=== PATIENT | female | born 1960 | race Caucasian/White ===

== ENCOUNTER 2017-01-19 09:22 | Outpatient (CLI) | payer OTHER ==
[~2017-01-19] VITALS: Ht 162.6 cm; Wt 104.3 kg
[~2017-01-19 09:22] MED LIST: CYAN10006 PO; DEXT10TA9 PO; DILT120C47 PO; DILT120C54 PO; HYDR-3812 PO; OMEP20TA7 PO; [UNRECOGNIZED DRUG - OTHER] PO
[2017-01-19] MEDS ORDERED: NAPR220C11 PO (09:36)
[2017-01-19] MEDS ORDERED: CETI5TAB6 PO (09:36)
[2017-01-19 09:40] VITALS: BP 124/69
[2017-01-20] MEDS ORDERED: HYDR-3816 PO (12:02)
== END 2017-01-19 10:27 | disposition home or self-care (01) ==
LOC: PREOP 09:22
PROVIDERS: ATTEND Orthopaedic Surgery
DX: Z01.818 Encounter for other preprocedural examination (principal); Z11.2 Encounter for screening for other bacterial diseases; M94.261 Chondromalacia, right knee
CPT/HCPCS: 87081

== ENCOUNTER 2017-01-20 08:17 | Day surgery (SDC) | payer OTHER ==
[~2017-01-20] VITALS: Ht 162.6 cm; Wt 104.3 kg
--- NOTE | 2017-01-20 07:25 | HISTORY AND PHYSICAL ---
DATE OF ADMISSION: 01/20/2017 This will be for outpatient surgery for right knee arthroscopy. HISTORY: The patient is a 56-year-old female with right knee pain, anteriorly. She reports swelling in her knee. She reports catching and locking since July. She reports difficulty with stairs because of her knees. She reports activity limitations. She has failed to respond to conservative measures, including anti-inflammatories, and intra-articular injection and due to functional impairment, the patient has elected to proceed with surgical intervention. REVIEW OF SYSTEMS: No chest pain, no shortness of breath. No dysuria. PAST MEDICAL HISTORY: 1. Tachycardia. 2. Fatigue. 3. Palpitations. PAST SURGICAL HISTORY: 1. Left knee arthroscopy. 2. Hysterectomy. 3. Cholecystectomy. 4. Gynecologic. FAMILY HISTORY: Significant for: 1. Hypertension. 2. COPD. 3. Dementia. 4. Hyperlipidemia. 5. Coronary artery disease. PRIMARY CARE PROVIDER: Dr. Ratliff. MEDICATIONS: 1. Diltiazem 2. Aleve 3. Cetirizine ALLERGIES: 1. Prednisone 2. Adderall SOCIAL HISTORY: The patient is a former smoker. She denies alcohol use. Radiographs reveal mild medial and patellofemoral joint space narrowing. PHYSICAL EXAMINATION: The patient is well-developed, well-nourished, in no acute distress. HEENT: Normocephalic, atraumatic. Pupils are equal, round, and reactive to light, oropharynx is clear. NECK: Supple. No lymphadenopathy. LUNGS: Clear to auscultation bilaterally. HEART: Regular rate and rhythm. ABDOMEN: Soft, nontender, nondistended. EXTREMITY EXAM: The right knee demonstrates a moderate effusion. She has patellofemoral crepitus, pain with patellar loading. She is also tender along her medial joint line but has no pain medially with Vale's. Range of motion 0/0/125. The patient ambulates with an antalgic gait. 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 PLAN: Right knee arthroscopy with chondroplasty and partial meniscectomy. The risks, benefits, options, ramifications and recovery were discussed at length with the patient. She understands wishes to proceed. Job ID: [id number] Dictated Date: 01/18/2017 15:54:42 Nursing Attendant Date: 01/19/2017 08:22:00/bipin
[~2017-01-20 08:17] MED LIST changes: +CETI5TAB6 PO; +NAPR220C11 PO
[2017-01-20] MEDS ORDERED: NS (IVPB) 50 ML ONE (08:24)
[2017-01-20] MEDS ORDERED: ceFAZolin 1,000 MG (ANCEF) VIAL ONE (08:24)
[2017-01-20 08:33] VITALS: BP 136/74
[2017-01-20] MEDS ORDERED: ceFAZolin 1 GM/NS 50 ML IVPB IV ONE ×2 (08:45)
[2017-01-20] MEDS ORDERED: CATHETER FLUSH 10 ML SYR IV PRN (08:45)
--- NOTE | 2017-01-20 08:54 | Progress Note-Pre Operative ---
Pre-Operative Progress Note H&P Reviewed The H&P was reviewed, patient examined and no changes noted. Date H&P Reviewed: Jan 20, 2017 Time H&P Reviewed: 08:53 Pre-Operative Diagnosis: right knee chondromalacia of the patella and medial meniscal tear ROQUE MONTELONGO MD Jan 20, 2017 08:54
--- NOTE | 2017-01-20 08:55 | Progress Note-Post Operative ---
Post-Operative Progess Note Rcis Buzz Giron Pre-Operative Diagnosis right knee chondromalacia of the patella and medial meniscal tear Post-Operative Diagnosis right knee chondromalacia of the patella, trochlea, medial tibial plateau, and medial femoral condyle and medial meniscal tear Post-Op Procedure Note Date of Procedure: Jan 20, 2017 Name of Procedure: right knee arthroscopic chondroplasty of the patella, trochlea, medial femoral condyle and medial tibial plateau and partial medial meniscectomy Anesthesia Type GETA Estimated blood loss (mL): minimal Packing: none Specimen(s) collected none ROQUE MONTELONGO MD Jan 20, 2017 08:55
[2017-01-20] MEDS ORDERED: ONDANSETRON 4 MG/2 ML (SDV) Z0FRAN IV ONE (09:15)
[2017-01-20] MEDS ORDERED: FAMOTIDINE 20MG/2ML IV (PEPCID) IV ONE (09:15)
[2017-01-20] MEDS ORDERED: SCOPOLAMINE 1.5 MG (TRANSDERM-SCOP) PATCH TOP ONE (09:15)
[2017-01-20] MEDS ORDERED: FAMOTIDINE 20MG/2ML IV (PEPCID) ONE (09:19)
[2017-01-20] MEDS ORDERED: ONDANSETRON 4 MG/2 ML (SDV) Z0FRAN ONE ×2 (09:19→09:29)
[2017-01-20] MEDS ORDERED: SCOPOLAMINE 1.5 MG (TRANSDERM-SCOP) PATCH ONE (09:19)
[2017-01-20] MEDS: LACTATED RINGERS 1,000 ML IV PRN ×2 (09:22→10:45)
[2017-01-20] MEDS ORDERED: LIDOCAINE PF 2% 10 ML (XYLOCAINE) AMP ONE (09:29)
[2017-01-20] MEDS ORDERED: DEXAMETHASONE PF 10 MG/ML (DECADRON) VIAL ONE (09:29)
[2017-01-20] MEDS ORDERED: LACTATED RINGERS 1,000 ML IV ONE ×2 (09:29→10:42)
[2017-01-20] MEDS ORDERED: SEVOFLURANE (ULTANE) 15 ML INHAL SOLN ONE (09:29)
[2017-01-20] MEDS ORDERED: fentaNYL INJECTION 100 MCG/2 ML AMP ONE (09:29)
[2017-01-20] MEDS ORDERED: proPOfol 200 MG/20 ML (DIPRIVAN) VIAL IV ONE (09:29)
[2017-01-20] MEDS ORDERED: MIDAZOLAM 2 MG/2 ML (VERSED) VIAL ONE (09:29)
[2017-01-20] MEDS ORDERED: HYDROcodone/APAP 7.5 MG/325 MG (LORTAB, LORCET PLUS) TABLET PO PRN (09:30)
[2017-01-20] MEDS ORDERED: BUPIVACAINE 0.25% 30 ML (SENSORCAINE) VIAL ONE (09:37)
[2017-01-20] MEDS ORDERED: morphine PF (DURAMORPH) 10 MG/10 ML AMP ONE (09:37)
[2017-01-20] MEDS ORDERED: ONDANSETRON 4 MG/2 ML (SDV) Z0FRAN IVP PRN (11:00)
[2017-01-20] MEDS ORDERED: MEPERIDINE (DEMEROL) INJ 50 MG/ML IVP PRN (11:00)
[2017-01-20] MEDS: morphine INJ 10 MG/ML 1ML (SYR OR VIAL) IVP PRN ×2 (11:00→11:14)
[2017-01-20 11:50] VITALS: BP 117/79
[2017-01-20] MEDS ORDERED: HYDR-3816 PO (12:02)
[2017-01-20 12:20] VITALS: BP 116/79
[2017-01-20 12:50] VITALS: BP 114/75
[2017-01-20 13:15] VITALS: BP 114/75
--- NOTE | 2017-01-20 15:58 | Physical Therapy Progress Note ---
Therapy Progress Note Orders received for PT eval with gait training and exercise post knee scope. Pt declined gait training as she reported she felt comfortable using her crutches as she used them in a previous surgery. However, she felt she needed a refresher on the exercises. Reviewed and instructed in HEP of QS, HS and SLR. Pt demonstrated correct performance and had no questions post treatment. Visit only. no charge rendered. LYNN SHEPARD PT Jan 20, 2017 15:58
--- NOTE | 2017-01-21 11:16 | OPERATIVE REPORT ---
PROCEDURE PHYSICIAN: ROQUE MONTELONGO DATE OF PROCEDURE: 01/20/2017 PREOPERATIVE DIAGNOSIS: 1. Right knee medial meniscal tear. 2. Right knee chondromalacia of the patella. 3. Right knee chondromalacia of the trochlea. POSTOPERATIVE DIAGNOSIS: 1. Right knee medial meniscal tear. 2. Right knee chondromalacia of the patella. 3. Right knee chondromalacia of the trochlea. 4. Right knee chondromalacia of the medial femoral condyle. 5. Right knee chondromalacia of the medial tibial plateau. PROCEDURE: 1. Right knee arthroscopic partial medial meniscectomy. 2. Right knee arthroscopic chondroplasty of the patella. 3. Right knee arthroscopic chondroplasty of the trochlea. 4. Right knee arthroscopic chondroplasty of the medial femoral condyle. 5. Right knee arthroscopic chondroplasty of the medial tibial plateau. SURGEON: Dennis EXPANDER MACHINE OPERATOR: Buzz Giron who assisted throughout the procedure and closed the incisions. ANESTHESIA: General endotracheal by Dr. Hurd. TOURNIQUET TIME: Was not applicable. ESTIMATED BLOOD LOSS: Minimal. DRAINS: None. COMPLICATIONS: None. POSTOPERATIVE PLAN: Routine arthroscopy protocol. The patient was transported to the recovery room, awake, in stable condition. STATEMENT OF MEDICAL NECESSITY: The patient is a 56-year-old female with right anterior and medial knee pain, swelling, popping and snapping. She has undergone treatment with injections without relief. She reported continued functional impairment. She had a large effusion. She had pain with patellar loading tenderness along her medial femoral condyle and due to functional impairment and failure to improve with conservative measures, the patient elected to proceed with surgical intervention. Examination under anesthesia revealed range of motion 0/0/130. Negative Juliane. Negative anterior and posterior drawer. No varus valgus laxity. Negative pivot shift. Arthroscopic findings: The patella demonstrated grade 2 chondral flaps over the lateral facet in a 10 x 15 area. The trochlea demonstrated grade 4 chondral loss centrally in a 10 x 15 area with surrounding grade 3 chondral flaps at the periphery. The lateral compartment demonstrated no meniscal or chondral pathology. The ACL and PCL were intact. The medial compartment demonstrated a horizontal cleavage tear of the posterior horn of the meniscus involving approximately 30% of the posterior horn. In addition, there were grade 3 chondral flap centrally over the tibial plateau in a 10 x 8 area and over the central portion of femoral condyle in a 15 x 10 area. PROCEDURE: After risks and benefits of procedure were discussed and questions were answered, informed consent signed and placed on chart. The operative site was confirmed in the preoperative holding area and initialed by the surgeon. The patient was then transported to the operating room and after adequate levels of general endotracheal anesthetic were obtained, a timeout was called confirming the operative site. Examination under anesthesia was performed with the above findings noted. The right lower extremity was then prepped and draped usual sterile fashion. The knee joint was injected with 60 mL of fluid and a standard inferolateral port was placed for the arthroscope and inflow cannula. A diagnostic arthroscopy was carried out after creating an inferior medial portal under direct visualization. The unstable chondral flaps on the patella and trochlea were debrided with a shaver back to a stable edge. The scope was then redirected into the medial compartment and the unstable chondral flaps of the medial femoral condyle and medial tibial plateau were debrided with a shaver, back to a stable edge. The posterior horn of the medial meniscus was debrided with a biter and with a shaver, removing approximately 1/3rd of the posterior horn. This was carefully probed with no further tearing or instability noted. The knee was copiously irrigated. Port sites closed with 3-0 nylon in simple interrupted fashion. The knee was injected with Duramorph. Portal sites were infiltrated with plain Marcaine. A soft dressing was applied. The patient was transported to the recovery room, awake, in stable condition. Job ID: [id number] Dictated Date: 01/20/2017 10:50:14 Assembler Garment Form Date: 01/21/2017 11:04:17 / licha
== END 2017-01-20 13:15 | disposition home or self-care (01) ==
LOC: SDC 08:17
PROVIDERS: ATTEND Orthopaedic Surgery
DX: M23.8X1 Other internal derangements of right knee (principal); M22.41 Chondromalacia patellae, right knee; I10 Essential (primary) hypertension; J44.9 Chronic obstructive pulmonary disease, unspecified; F03.90 Unspecified dementia, unspecified severity, without behavioral disturbance, psychotic disturbance, mood disturbance, and anxiety; E78.5 Hyperlipidemia, unspecified; I25.10 Atherosclerotic heart disease of native coronary artery without angina pectoris; Z79.899 Other long term (current) drug therapy; Z87.891 Personal history of nicotine dependence

== ENCOUNTER → 2017-06-14 | Outpatient (CLI) | payer BC, OTHER ==
[~2017-06-14] MED LIST changes: +HYDR-3816 PO
--- NOTE | 2017-06-15 17:44 | Diagnostic Imaging Report ---
Bilateral screening mammogram 2D views with tomosynthesis. The current study was also evaluated with a Computer Aided Detection (CAD) system. INDICATION: Screening. No current complaints stated on the questionnaire. COMPARISON: 03/16/16 FINDINGS: The breasts are composed of scattered fibroglandular densities. There are occasional benign-appearing calcifications. Allowing for technique and positional differences, no suspicious change is seen. IMPRESSION: No significant change. ACR BI-RADS Category 2: Benign findings. Result letter will be mailed to the patient. Note: At least 10% of breast cancer is not imaged by mammography. Dictated by: Dictated on workstation # [id number]
== END ==
LOC: RAD 15:20
PROVIDERS: ATTEND Internal Medicine
DX: Z12.31 Encounter for screening mammogram for malignant neoplasm of breast (principal)
CPT/HCPCS: 77067

== ENCOUNTER → 2017-07-23 | Outpatient (CLI) | payer BC ==
[2017-07-23 11:32] LABS: BASOPHILS % (AUTO) 1 % (0-10); EOSINOPHILS # (AUTO) 0.2 10^3/uL (0.0-0.3); EOSINOPHILS % (AUTO) 2 % (0-10); LYMPHOCYTES # (AUTO) 2.3 X 10^3 (1.0-4.0); LYMPHOCYTES % (AUTO) 36 % (12-44); MEAN CORPUSCULAR HEMOGLOBIN 30 PG (25-34); MEAN CORPUSCULAR HGB CONC 33 G/DL (32-36); MEAN CORPUSCULAR VOLUME 91 FL (80-99); MEAN PLATELET VOLUME 10.2 FL (7.4-10.4); MONOCYTES # (AUTO) 0.5 X 10^3 (0.0-1.0); MONOCYTES % (AUTO) 8 % (0-12); NEUTROPHILS # (AUTO) 3.3 X 10^3 (1.8-7.8); NEUTROPHILS % (AUTO) 53 % (42-75); PLATELET COUNT 272 10^3/uL (130-400); RED BLOOD COUNT 4.44 10^6/uL (4.35-5.85); RED CELL DISTRIBUTION WIDTH 13.7 % (10.0-14.5); WHITE BLOOD COUNT 6.3 10^3/uL (4.3-11.0)
[2017-07-23 11:57] LABS: ALANINE AMINOTRANSFERASE 19 U/L (0-55); ALBUMIN 4.3 GM/DL (3.2-4.5); ANION GAP 9 MMOL/L (5-14); ASPARTATE AMINO TRANSFERASE 21 U/L (5-34); BILIRUBIN,TOTAL 0.7 MG/DL (0.1-1.0); BLOOD UREA NITROGEN 20 MG/DL (7-18); BUN/CREATININE RATIO 22; CALCIUM 9.1 MG/DL (8.5-10.1); CARBON DIOXIDE 27 MMOL/L (21-32); CHLORIDE 106 MMOL/L (98-107); CHOLESTEROL 218 MG/DL (< 200); CREATININE SERUM 0.93 MG/DL (0.60-1.30); DIRECT LDL 158 MG/DL (1-129); GFR ESTIMATED > 60; GLUCOSE 97 MG/DL (70-105); SODIUM 142 MMOL/L (135-145); TOTAL PROTEIN 6.9 GM/DL (6.4-8.2); TRIGLYCERIDES 68 MG/DL (<150); VLDL CHOLESTEROL 14 MG/DL (5-40)
[2017-07-23 12:17] LABS: THYROID STIMULATING HORMONE 0.93 UIU/ML (0.35-4.94)
== END ==
LOC: LAB 10:39
PROVIDERS: ATTEND Internal Medicine
DX: E53.8 Deficiency of other specified B group vitamins (principal); E78.00 Pure hypercholesterolemia, unspecified; E78.1 Pure hyperglyceridemia
CPT/HCPCS: 36415; 80053; 80061; 82607; 82746; 84443; 85025

== ENCOUNTER 2017-11-17 10:00 | Outpatient (RCR) | payer BC ==
[2017-11-11 13:06] VITALS: BP 134/74
[~2017-11-17] VITALS: Ht 162.6 cm; Wt 106.6 kg
[~2017-11-17 10:00] MED LIST changes: +ACHD5005 PO; +HYDR-34 PO; -HYDR-3812 PO; -HYDR-3816 PO
[2017-11-17 10:17] LABS: BASOPHILS % (AUTO) 0 % (0-10); EOSINOPHILS # (AUTO) 0.1 10^3/uL (0.0-0.3); EOSINOPHILS % (AUTO) 2 % (0-10); HEMATOCRIT 40 % (35-52); HEMOGLOBIN 13.3 G/DL (11.5-16.0); LYMPHOCYTES # (AUTO) 1.6 X 10^3 (1.0-4.0); LYMPHOCYTES % (AUTO) 30 % (12-44); MEAN CORPUSCULAR HEMOGLOBIN 30 PG (25-34); MEAN CORPUSCULAR HGB CONC 33 G/DL (32-36); MEAN CORPUSCULAR VOLUME 91 FL (80-99); MEAN PLATELET VOLUME 10.3 FL (7.4-10.4); MONOCYTES # (AUTO) 0.5 X 10^3 (0.0-1.0); MONOCYTES % (AUTO) 9 % (0-12); NEUTROPHILS # (AUTO) 3.1 X 10^3 (1.8-7.8); NEUTROPHILS % (AUTO) 59 % (42-75); PLATELET COUNT 256 10^3/uL (130-400); RED BLOOD COUNT 4.45 10^6/uL (4.35-5.85); RED CELL DISTRIBUTION WIDTH 13.9 % (10.0-14.5); WHITE BLOOD COUNT 5.4 10^3/uL (4.3-11.0)
[2017-11-18] MEDS ORDERED: Hydrocodone Bit/Acetaminophen PO (09:09)
[2017-11-18] MEDS ORDERED: DOCU100C37 PO (09:09)
[2017-11-18] MEDS ORDERED: IBUP-1773 PO (09:09)
[2017-11-19] MEDS ORDERED: CIPR-225 PO (11:04)
== END 2018-02-09 | disposition home or self-care (01) ==
LOC: PREOP 10:00
PROVIDERS: ATTEND Obstetrics & Gynecology
DX: Z01.818 Encounter for other preprocedural examination (principal); N81.10 Cystocele, unspecified; N39.3 Stress incontinence (female) (male)
CPT/HCPCS: 36415; 85025; 86850; 86900; 86901; 87081

== ENCOUNTER 2017-11-18 08:17 | Day surgery (SDC) | payer BC ==
[~2017-11-18] VITALS: Ht 162.6 cm; Wt 106.6 kg
[~2017-11-18 08:17] MED LIST changes: -ACHD5005 PO; -HYDR-34 PO; +HYDR-3812 PO; +HYDR-3816 PO
[2017-11-18] MEDS: LACTATED RINGERS 1,000 ML IV PRN ×4 (08:49→11:16)
[2017-11-18 08:54] VITALS: BP 132/65
[2017-11-18] MEDS ORDERED: ceFAZolin 1 GM/NS 50 ML IVPB IV ONE ×2 (09:00)
[2017-11-18] MEDS: ceFAZolin INJECTION 1,000 MG in NS (IVPB) 50 ML IV ONE ×2 (09:02→09:32)
--- NOTE | 2017-11-18 09:02 | Progress Note-Pre Operative ---
Pre-Operative Progress Note H&P Reviewed The H&P was reviewed, patient examined and no changes noted. Date Seen by Provider: Nov 18, 2017 Time Seen by Provider: 09:00 Date H&P Reviewed: Nov 18, 2017 Time H&P Reviewed: 09:00 Pre-Operative Diagnosis: BRENDA, Cystocele ROQUE ALEXANDRA DO Nov 18, 2017 9:02 am
[2017-11-18] MEDS ORDERED: DOCU100C37 PO (09:09)
[2017-11-18] MEDS ORDERED: IBUP-1773 PO (09:09)
[2017-11-18] MEDS ORDERED: Hydrocodone Bit/Acetaminophen PO (09:09)
--- NOTE | 2017-11-18 09:11 | Discharge Inst-Women's Service ---
Discharge Inst-Women's Serv Depart Medication/Instructions New, Converted or Re-Newed RX: RX on Chart Consults/Follow Up Additional Follow Up: Yes Orders/Referrals 2-3 weeks Activity Activity: Activity as Tolerated NO SMOKING: NO SMOKING Nothing Inside Vagina: No Douching, No Hiller, No Tampons Other Activity Use premarin cream 3x a week at night to promote healing Diet Discharge Diet: No Restrictions Symptoms to Report to : Bleeding Excessive, Pain Increased, Constipation( Persistant), Fever Over 101 Degrees F, Urination Difficulty, Vaginal Bleeding Increase, Questions/Concerns For Any Problems or Questions: Contact Your Physician Skin/Wound Care Bathing Instructions: Shower (x 2 weeks.) ROQUE ALEXANDRA DO Nov 18, 2017 9:11 am
[2017-11-18] MEDS ORDERED: morphine INJ 10 MG/ML 1ML (SYR OR VIAL) IV PRN (09:15)
[2017-11-18] MEDS ORDERED: METOCLOPRAMIDE INJ 10 MG/2 ML (REGLAN) IV PRN (09:15)
[2017-11-18] MEDS ORDERED: HYDROcodone/APAP 5 MG/325 MG (LORTAB) TAB PO PRN (09:15)
[2017-11-18] MEDS ORDERED: LACTATED RINGERS 1,000 ML IV PRN (09:21)
[2017-11-18] MEDS ORDERED: fentaNYL INJECTION 100 MCG/2 ML AMP ONE ×2 (09:27→10:00)
[2017-11-18] MEDS ORDERED: ROCURONIUM 50 MG/5 ML (ZEMURON) VIAL IV ONE (09:27)
[2017-11-18] MEDS ORDERED: MIDAZOLAM 2 MG/2 ML (VERSED) VIAL ONE (09:27)
[2017-11-18] MEDS ORDERED: LIDOCAINE JELLY 2% (XYLOCAINE) 5 ML TUBE ONE (09:27)
[2017-11-18] MEDS ORDERED: LIDOCAINE PF 2% 5 ML (XYLOCAINE) VIAL ONE (09:27)
[2017-11-18] MEDS ORDERED: proPOfol 200 MG/20 ML (DIPRIVAN) VIAL IV ONE (09:27)
[2017-11-18] MEDS ORDERED: ONDANSETRON 4 MG/2 ML (SDV) Z0FRAN ONE (09:27)
[2017-11-18] MEDS ORDERED: SCOPOLAMINE 1.5 MG (TRANSDERM-SCOP) PATCH TOP ONE (09:30)
[2017-11-18] MEDS ORDERED: FAMOTIDINE 20MG/2ML IV (PEPCID) IV ONE (09:30)
[2017-11-18] MEDS ORDERED: ONDANSETRON 4 MG/2 ML (SDV) Z0FRAN IV ONE (09:30)
[2017-11-18] MEDS ORDERED: NS (IVPB) 100 ML ONE (09:49)
[2017-11-18] MEDS ORDERED: VASOPRESSIN INJECTION 20 UNIT/ML VIAL ONE (09:50)
--- NOTE | 2017-11-18 10:06 | Progress Note-Pre Operative ---
Pre-Operative Progress Note H&P Reviewed The H&P was reviewed, patient examined and no changes noted. Date Seen by Provider: Nov 18, 2017 Time Seen by Provider: 10:06 Date H&P Reviewed: Nov 18, 2017 Time H&P Reviewed: : Pre-Operative Diagnosis: INCONTINENCE, OAB, ISD ART MEDINA MD Nov 18, 2017 10:06 am
--- NOTE | 2017-11-18 10:07 | Progress Note-Post Operative ---
Post-Operative Progess Note Surgeon (s)/Slipman (s) Surgeon ART MEDINA MD Slipman: N/A Pre-Operative Diagnosis INCONTINENCE, OAB, ISD Post-Operative Diagnosis SAME Procedure & Operative Findings Date of Procedure 11/18/17 Procedure Performed/Findings PVS AND CYSTOSCOPY Anesthesia Type GENERAL Estimated Blood Loss Estimated blood loss (mL): NEGLIGIBLE Specimens/Packing Specimens Removed N/A Packing: VAGINAL PACK ART MEDINA MD Nov 18, 2017 10:07 am
[2017-11-18] MEDS ORDERED: ESTROGENS CONJ. CREAM 30 GM (PREMARIN) TUBE ONE (10:12)
[2017-11-18] MEDS ORDERED: SEVOFLURANE (ULTANE) 15 ML INHAL SOLN ONE ×3 (10:47→10:48)
--- OUTSIDE RECORDS SUMMARY | 2017-11-18 10:48 | XMS REPORT | Clinical Summary ---
Author Author User, JARVIS Gresham [facility] Address Unknown Phone Allergies, Adverse Reactions, Alerts Allergy Name Reaction Description Start Date Severity Status Provider PREDNISONE palpatations Critical Active Nanette Ratliff Conditions or Problems Problem Name Problem Code Onset Date Status Entry Date Provider Comment Standard Description Annotate OTITIS MEDIA 382.9 Resolved Nanette Ratliff Unspecified otitis media SMOKER 305.1 Active Nanette Ratliff Tobacco use disorder HERPES LABIALIS 054.9 Active Nanette Ratliff Herpes simplex without mention of complication HEEL PAIN, RIGHT 729.5 Resolved Nanette Ratliff Pain in limb ABNORMAL MAMMOGRAM 793.80 Resolved Nanette Ratliff Abnormal mammogram, unspecified KNEE PAIN 719.46 Resolved Nanette Ratliff Pain in joint involving lower leg MENOPAUSAL SYNDROME 627.0 Resolved Nanette Ratliff Premenopausal menorrhagia BREAST MASS, LEFT 611.72 Resolved Nanette Ratliff Lump or mass in breast HEALTH SCREENING V70.0 Resolved Nanette Ratliff Routine general medical examination at a health care facility FATIGUE, CHRONIC 780.79 Resolved Nanette Ratliff Other malaise and fatigue RAYNAUD'S SYNDROME 443.0 Active Nanette Ratliff Raynaud's syndrome POLYARTHRALGIA 719.49 Active Nanette Ratliff Pain in joint involving multiple sites WELL WOMAN V70.0 Inactive Nanette Ratliff Routine general medical examination at a health care facility Medication List Medication Instructions Start Date Stop Date Generic Name NDC Status Provider Patient Instruction VALTREX 1 GM TAB 1 PO BID for 3 days prn cold sore VALACYCLOVIR HCL 86781718594 Active Arianna Beal CARTIA XT 120 MG [id number] 1 PO daily DILTIAZEM HCL COATED BEADS 05487780309 Active Sylvester Valenzuela VALTREX 1 GM TABS 1 PO BID as needed for cold sore VALACYCLOVIR HCL 78797990297 No Longer Active Nanetteshruthi Ratliff PYRIDIUM 200 MG TAB 1 PO TID prn urinary urgency PHENAZOPYRIDINE HCL 58824654469 No Longer Active Nanette Ratliff CIPRO 500 MG TAB 1 PO BID for 3 days CIPROFLOXACIN HCL 69415457582 No Longer Active Nanetteshruthi Ratliff ADDERALL 10 MG TABS 1 PO BID AMPHETAMINE- DEXTROAMPHETAMINE 54921836121 No Longer Active Nanette Ratliff LORTAB 5 5-500 MG TABS 1 to 2 PO Q6hrs prn ACETAMINOPHEN-HYDROCODONE 93148289760 No Longer Active Nanette Ratliff IBUPROFEN 600 MG TAB 1 po Q6 hours IBUPROFEN 79427097061 No Longer Active Nanette Ratliff PREDNISONE 20 MG TAB 2 pills at once for 2 days then 1 pill daily for 2 days PREDNISONE 99818156876 No Longer Active Nanette Ratliff OCUFLOX 0.3 % SOLN 2 drops right ear TID for 7 days OFLOXACIN 61598535787 No Longer Active Nanette Ratliff AUGMENTIN 500-125 MG TAB 1 PO BID AMOXICILLIN-POT CLAVULANATE 18626930377 No Longer Active Nanette Racheal Ratliff Vital Signs Date Name Value Unit Range Description blood pressure, diastolic - 8462-4 80 mm[Hg] BP avelar blood pressure, systolic - 8480-6 134 mm[Hg] BP sys pulse rate E&M - 8867-4 70 /min Heart rate respiratory rate E&M - 9279-1 14 /min Resp rate temperature E&M 98.6 [degF] Body temperature weight E&M - 3141-9 216 [lb_av] Weight Measured Diagnostic Results Date Name Value Unit Range Description Clinical Lists Update: CBC,CMP,FLP,TSH,FREE T4,HGA1C - Chemistry Estimated Glomerular Filtration Rate (calc) >60 mL/min/1.73m2 albumin, serum 4.3 g/dL very low density lipoproteins 17 mg/dL sodium, serum 143 mmol/L triglyceride, serum, fasting 83 mg/dL bilirubin, serum, total 0.8 mg/dL alanine aminotransferase (SGPT), serum 14 U/L aspartate aminotransferase (SGOT), serum 16 U/L protein, total, serum 7.1 g/dL potassium, serum 4.0 mmol/L LDL cholesterol, serum 140 mg/dL thyroid stimulating hormone, serum 1.59 u[iU]/mL hemoglobin A1C, blood, as % of total hemoglobin 5.4 % HDL cholesterol, serum 53 mg/dL thyroxine, serum, free 1.18 ng/dL creatinine, serum 0.92 mg/dL carbon dioxide, venous blood 25 mmol/L cholesterol, serum 210 mg/dL chloride, serum 107 mmol/L calcium, serum 9.5 mg/dL urea nitrogen, blood 18 mg/dL alkaline phosphatase, serum 67 U/L glucose, plasma fasting 99 mg/dL Clinical Lists Update: CBC,CMP,FLP,TSH,FREE T4,HGA1C - Hematology hemoglobin, blood 14.1 g/dL hematocrit, blood 43 % platelet count 280 10*3/mm3 erythrocyte (RBC) count 4.77 10*6/mm3 leukocyte count, blood 5.8 10*3/mm3 mean corpuscular volume, RBC 90 fL red blood cell distribution width 13.0 % Clinical Lists Update: CMP,FLP,HgA1c - Chemistry aspartate aminotransferase (SGOT), serum 17 U/L Estimated Glomerular Filtration Rate (calc) 47 mL/min/1.73m2 potassium, serum 3.7 mmol/L LDL cholesterol, serum 145 mg/dL hemoglobin A1C, blood, as % of total hemoglobin 5.4 % HDL cholesterol, serum 56 mg/dL creatinine, serum 1.2 mg/dL carbon dioxide, venous blood 29 mmol/L cholesterol, serum 217 mg/dL chloride, serum 101 mmol/L calcium, serum 8.7 mg/dL urea nitrogen, blood 20 mg/dL alkaline phosphatase, serum 90 U/L albumin, serum 4.0 g/dL alanine aminotransferase (SGPT), serum 32 U/L bilirubin, serum, total 0.6 mg/dL triglyceride, serum, fasting 82 mg/dL sodium, serum 134 mmol/L very low density lipoproteins 16 mg/dL glucose, plasma fasting 103 mg/dL protein, total, serum 7.1 g/dL Encounters Code Encounter Date Provider Facility CPT-42302 Ofc Vst, Est Level IV 14:12:27 ADELAIDA Ratliff DO, FACP CPT-43295 Ofc Vst, Est Level IV 13:39:25 CDT Nanetteshruthi Siddiqui Gaudencio, DO, FACP CPT-26509 Ofc Vst, Est Level IV 15:12:14 CDT Nanette Siddiqui Gaudencio, DO, FACP CPT-03568 Ofc Vst, Est Level IV 16:33:31 QUARTER TRIMMER Nanette Siddiqui Gaudencio, DO, FACP CPT-65596 Ofc Vst, Est Level IV 15:55:55 QUARTER TRIMMER Nanette Siddiqui Gaudencio, DO, FACP CPT-76585 Ofc Vst, Est Level III 15:14:12 CDT Nanette Siddiqui Gaudencio, DO, FACP CPT-32024 Ofc Vst, Est Level III 17:58:07 CDT Nanetteshruthi Siddiqui Gaudencio, DO, FACP CPT-83087 Ofc Vst, New Level III 16:06:43 CDT Nanette Siddiqui Gaudencio, DO, FACP Procedures Code Procedure Name Date Entry Date Standard Description CPT-67497 Preventive, Est, (40-64) 16:32:00 CDT CPT-36490 Preventive, Est, (40-64) 15:02:18 CDT
--- OUTSIDE RECORDS SUMMARY | 2017-11-18 10:48 | XMS REPORT | Clinical Summary ---
Author Author User, JARVIS Gresham [facility] Address Unknown Phone Allergies, Adverse Reactions, [...] Generic Name NDC Status Provider Patient Instruction VITAMIN B-12 1000 MCG TABS 1 PO daily CYANOCOBALAMIN 59034893255 Active Nanette Ratliff VALTREX 1 GM TAB 1 PO BID for 3 days prn cold sore VALACYCLOVIR HCL 23649616295 Active Arianna Beal CARTIA XT 120 MG [id number]-PMV 1 PO daily DILTIAZEM HCL COATED BEADS 70474894224 Active Sylvester Valenzuela VALTREX 1 GM TABS 1 PO BID as needed for cold sore VALACYCLOVIR HCL 39236744115 No Longer Active Nanette Ratliff PYRIDIUM 200 MG TAB 1 PO TID prn urinary urgency PHENAZOPYRIDINE HCL 98834690924 No Longer Active Nanetteshruthi Ratliff CIPRO 500 MG TAB 1 PO BID for 3 days CIPROFLOXACIN HCL 66037635981 No Longer Active Nanette Ratliff ADDERALL 10 MG TABS 1 PO BID AMPHETAMINE- DEXTROAMPHETAMINE 17800421698 No Longer Active Nanette Ratliff LORTAB 5 5-500 MG TABS 1 to 2 PO Q6hrs prn ACETAMINOPHEN-HYDROCODONE 33053988359 No Longer Active Nanetteshruthi Ratliff IBUPROFEN 600 MG TAB 1 po Q6 hours IBUPROFEN 72421567080 No Longer Active Nanette Ratliff PREDNISONE 20 MG TAB 2 pills at once for 2 days then 1 pill daily for 2 days PREDNISONE 08866798874 No Longer Active Nanette Ratliff OCUFLOX 0.3 % SOLN 2 drops right ear TID for 7 days OFLOXACIN 77259527082 No Longer Active Nanetteshruthi Ratliff AUGMENTIN 500-125 MG TAB 1 PO BID AMOXICILLIN-POT CLAVULANATE 50934755953 No Longer Active Nanette Ratliff Vital Signs Date Name Value Unit [...] Estimated Glomerular Filtration Rate (calc) >60 mL/min/1.73m2 alkaline phosphatase, serum 67 U/L very low density lipoproteins 17 mg/dL sodium, [...] 53 mg/dL thyroxine, serum, free 1.18 ng/dL albumin, serum 4.3 g/dL creatinine, serum 0.92 mg/dL carbon dioxide, venous blood 25 mmol/L cholesterol, serum 210 mg/dL chloride, serum 107 mmol/L calcium, serum 9.5 mg/dL urea nitrogen, blood 18 mg/dL glucose, plasma fasting 99 mg/dL Clinical Lists Update: CBC,CMP,FLP,TSH,FREE T4,HGA1C - Hematology hemoglobin, blood 14.1 g/dL red blood cell distribution width 13.0 % mean corpuscular volume, RBC 90 fL leukocyte count, blood 5.8 10*3/mm3 erythrocyte (RBC) count 4.77 10*6/mm3 platelet count 280 10*3/mm3 hematocrit, blood 43 % Clinical Lists Update: FERRITIN - Chemistry ferritin, serum 180 ng/mL Encounters Code Encounter Date Provider Facility CPT-55965 Ofc Vst, Est Level IV 14:12:27 CDT Nanetteshruthi Ratliff DO, FACP CPT-15258 Ofc Vst, Est Level IV 13:39:25 CDT Nanette Racheal Ratliff DO, FACP CPT-52700 Ofc Vst, Est Level IV 15:12:14 CDT Nanette Ratliff, DO, FACP CPT-41438 Ofc Vst, Est Level IV 16:33:31 JAIL GUARD Nanette Ratliff DO, FACP CPT-68635 Ofc Vst, Est Level IV 15:55:55 JAIL GUARD Nanette Ratliff DO, FACP CPT-82031 Ofc Vst, Est Level III 15:14:12 CDT Nanette Ratliff DO, FACP CPT-45752 Ofc Vst, Est Level III 17:58:07 CDT Nanette Ratliff DO, FACP CPT-95051 Ofc Vst, New Level III 16:06:43 CD[facility] Procedures Code Procedure Name Date Entry Date Standard Description CPT-05330 Preventive, Est, (40-64) 16:32:00 CDT CPT-42763 Preventive, Est, (40-64) 15:02:18 CDT
--- OUTSIDE RECORDS SUMMARY | 2017-11-18 10:49 | XMS REPORT | Clinical Summary ---
Author Author User, JARVIS [facility] Address Unknown Phone Allergies, Adverse Reactions, [...] 3 days prn cold sore VALACYCLOVIR HCL 17719023677 Active Arianna Beal CARTIA XT 120 MG [id number] 1 PO daily DILTIAZEM HCL COATED BEADS 13068181757 Active Sylvester Valenzuela VALTREX 1 GM TABS 1 PO BID as needed for cold sore VALACYCLOVIR HCL 22462761918 No Longer Active Nanetteshruthi Ratliff PYRIDIUM 200 MG TAB 1 PO TID prn urinary urgency PHENAZOPYRIDINE HCL 14272078889 No Longer Active Nanette Ratliff CIPRO 500 MG TAB 1 PO BID for 3 days CIPROFLOXACIN HCL 43439686655 No Longer Active Nanetteshruthi Ratliff ADDERALL 10 MG TABS 1 PO BID AMPHETAMINE- DEXTROAMPHETAMINE 67611907443 No Longer Active Nanette Ratliff LORTAB 5 5-500 MG TABS 1 to 2 PO Q6hrs prn ACETAMINOPHEN-HYDROCODONE 42225937977 No Longer Active Nanette Ratliff IBUPROFEN 600 MG TAB 1 po Q6 hours IBUPROFEN 45235019105 No Longer Active Nanette Ratliff PREDNISONE 20 MG TAB 2 pills at once for 2 days then 1 pill daily for 2 days PREDNISONE 49384062736 No Longer Active Nanette Ratliff OCUFLOX 0.3 % SOLN 2 drops right ear TID for 7 days OFLOXACIN 45886780043 No Longer Active Nanette Ratliff AUGMENTIN 500-125 MG TAB 1 PO BID AMOXICILLIN-POT CLAVULANATE 74105050190 No Longer Active Nanette Racheal Ratliff Vital [...] Clinical Lists Update: CBC,CMP,FLP,TSH,FREE T4,HGA1C - Chemistry albumin, serum 4.3 g/dL alkaline phosphatase, serum 67 U/L glucose, plasma fasting 99 mg/dL very low density lipoproteins 17 mg/dL sodium, [...] 9.5 mg/dL urea nitrogen, blood 18 mg/dL Estimated Glomerular Filtration Rate (calc) >60 mL/min/1.73m2 Clinical Lists Update: CBC,CMP,FLP,TSH,FREE T4,HGA1C - Hematology hemoglobin, blood 14.1 g/dL hematocrit, blood 43 % platelet count 280 10*3/mm3 erythrocyte (RBC) count 4.77 10*6/mm3 leukocyte count, blood 5.8 10*3/mm3 mean corpuscular volume, RBC 90 fL red blood cell distribution width 13.0 % Clinical Lists Update: CMP,FLP,HgA1c - Chemistry alanine aminotransferase (SGPT), serum 32 U/L aspartate aminotransferase (SGOT), serum 17 U/L protein, total, serum 7.1 g/dL potassium, serum 3.7 mmol/L LDL cholesterol, serum 145 mg/dL hemoglobin A1C, blood, as % of total hemoglobin 5.4 % HDL cholesterol, serum 56 mg/dL creatinine, serum 1.2 mg/dL carbon dioxide, venous blood 29 mmol/L cholesterol, serum 217 mg/dL chloride, serum 101 mmol/L calcium, serum 8.7 mg/dL urea nitrogen, blood 20 mg/dL alkaline phosphatase, serum 90 U/L albumin, serum 4.0 g/dL bilirubin, serum, total 0.6 mg/dL triglyceride, serum, fasting 82 mg/dL sodium, serum 134 mmol/L very low density lipoproteins 16 mg/dL glucose, plasma fasting 103 mg/dL Estimated Glomerular Filtration Rate (calc) 47 mL/min/1.73m2 Clinical Lists Update: FERRITIN - Chemistry ferritin, serum 180 ng/mL Encounters Code Encounter Date Provider Facility [id number] Ofc Vst, Est Level IV 14:12:27 CDT Nanette Siddiqui Gaudencio, DO, FACP CPT-35041 Ofc Vst, Est Level IV 13:39:25 CDT Nanette Pangner Nanette Siddiqui Gaudencio, DO, FACP CPT-25856 Ofc Vst, Est Level IV 15:12:14 CDT Nanette Pangner Nanette Siddiqui Gaudencio, DO, FACP CPT-92336 Ofc Vst, Est Level IV 16:33:31 [facility] Nanette Siddiqui Gaudencio, DO, FACP CPT-17439 Ofc Vst, Est Level IV 15:55:55 [facility] [employer] Nanette Pangner Nanette Chen Gaudencio, DO, FACP CPT-75758 Ofc Vst, Est Level III 15:14:12 CDT Nanette Pangner Nanette Siddiqui Gaudencio, DO, FACP CPT-98298 Ofc Vst, Est Level III 17:58:07 CDT Nanette Siddiqui Gaudencio, DO, FACP CPT-29442 Ofc Vst, New Level III 16:06:43 CDT Nanette Siddiqui Gaudencio, DO, FACP Procedures Code Procedure Name Date Entry Date Standard Description CPT-07967 Preventive, Est, (40-64) 16:32:00 CDT CPT-58924 Preventive, Est, (40-64) 15:02:18 CDT
--- OUTSIDE RECORDS SUMMARY | 2017-11-18 10:49 | XMS REPORT | Continuity of Care Document ---
Author Author [facility] Organization [facility] Address Unknown Phone Unavailable Allergies Active Description Code Type Severity Reaction Onset Reported/Identified Relationship to Patient Clinical Status Yes amphetamine aspartate [id number] Drug Allergy Unknown N/A 07/10/2014 Yes amphetamine sulfate [id number] Drug Allergy Unknown N/A 07/10/2014 Yes dextroamphetamine [id number] Drug Allergy Unknown N/A 07/10/2014 Yes STEROIDS STEROIDS Unknown N/A 07/10/2014 Medications There is no data. Problems Date Dx Coded Attending Type Code Diagnosis Diagnosed By 08/04/2013 ROQUE ALEXANDRA DO Ot 618.2 UTEROVAG PROLAPS-INCOMPL 07/10/2014 CELESTINO FRIED DO Ot 562.10 DIVERTICULOSIS COLON (W/O MENT OF HEMORR 07/10/2014 CELESTINO FRIED DO Ot V76.51 SCREEN MAL NEOP-COLON 04/11/2015 Ot V76.12 04/11/2015 Ot 305.1 04/11/2015 Ot 627.0 04/11/2015 Ot 719.46 04/11/2015 Ot 729.5 04/11/2015 Ot 780.79 04/11/2015 Ot V70.0 04/11/2015 Ot V70.0 04/11/2015 Ot V76.12 04/11/2015 Ot 793.80 04/11/2015 BLANCHE AVERY DOI Ot V76.12 04/11/2015 ROQUE ALEXANDRA DO Ot 618.01 04/11/2015 ROQUE ALEXANDRA DO Ot V72.63 04/11/2015 ROQUE ALEXANDRA DO Ot V74.8 04/11/2015 BENNIE CONNOLLY MIRTHA Ot 279.49 04/11/2015 BLANCHE AVERY DOI Ot 285.9 04/11/2015 BENNIE CONNOLLY MIRTHA Ot 443.0 04/11/2015 BENNIE CONNOLLY MIRTHA Ot 716.90 04/11/2015 AVERY DO, MIRTHA Ot V58.69 04/11/2015 AVERY DO, MIRTHA Ot V76.12 04/11/2015 AVERY DO, MIRTHA Ot V70.0 04/11/2015 CELESTINO FRIED DO Ot V72.84 04/26/2015 Ot V76.12 04/26/2015 Ot 305.1 04/26/2015 Ot 627.0 04/26/2015 Ot 719.46 04/26/2015 Ot 729.5 04/26/2015 Ot 780.79 04/26/2015 Ot V70.0 04/26/2015 Ot V70.0 04/26/2015 Ot V76.12 04/26/2015 Ot 793.80 04/26/2015 AVERY DO, MIRTHA Ot V76.12 04/26/2015 FENECH DO, ROQUE S Ot 618.01 04/26/2015 FENECH DO, ROQUE S Ot V72.63 04/26/2015 FENECH DO, ROQUE S Ot V74.8 04/26/2015 AVERY DO, MIRTHA Ot 279.49 04/26/2015 AVERY DO, MIRTHA Ot 285.9 04/26/2015 AVERY DO, MIRTHA Ot 443.0 04/26/2015 AVERY DO, MIRTHA Ot 716.90 04/26/2015 AVERY DO, MIRTHA Ot V58.69 04/26/2015 AVERY DO, MIRTHA Ot V76.12 04/26/2015 AVERY DO, MIRTHA Ot V70.0 04/26/2015 CELESTINO FRIED DO Ot V72.84 05/04/2015 AVERY DO, MIRTHA Ot 285.9 05/04/2015 AVERY DO, MIRTHA Ot 780.79 05/04/2015 AVERY DO, MIRTHA Ot 790.29 05/04/2015 AVERY DO, MIRTHA Ot V58.69 05/04/2015 AVERY DO, MIRTHA Ot V70.0 05/23/2015 AVERY DO, MIRTHA Ot 285.9 05/23/2015 AVERY DO, MIRTHA Ot 780.79 05/23/2015 AVERY DO, MIRTHA Ot 790.29 05/23/2015 AVERY DO, MIRTHA Ot V58.69 05/23/2015 AVERY DO, MIRTHA Ot V70.0 08/13/2015 AVERY DO, MIRTHA Ot V76.12 11/15/2015 FRIED DO, CELESTINO D Ot R10.9 11/15/2015 FRIED DO, CELESTINO D Ot R10.11 12/13/2015 Ot V76.12 12/13/2015 Ot 305.1 12/13/2015 Ot 627.0 12/13/2015 Ot 719.46 12/13/2015 Ot 729.5 12/13/2015 Ot 780.79 12/13/2015 Ot V70.0 12/13/2015 Ot V70.0 12/13/2015 Ot V76.12 12/13/2015 Ot 793.80 12/13/2015 AVERY DO, MIRTHA Ot V76.12 12/13/2015 FENECH DO, ROQUE S Ot 618.01 12/13/2015 FENECH DO, ROQUE S Ot V72.63 12/13/2015 FENECH DO, ROQUE S Ot V74.8 12/13/2015 AVERY DO, MIRTHA Ot 279.49 12/13/2015 AVERY DO, MIRTHA Ot 285.9 12/13/2015 AVERY DO, MIRTHA Ot 443.0 12/13/2015 AVERY DO, MIRTHA Ot 716.90 12/13/2015 AVERY DO, MIRTHA Ot V58.69 12/13/2015 AVERY DO, MIRTHA Ot V76.12 12/13/2015 AVERY DO, MIRTHA Ot V70.0 12/13/2015 FRIED DO, CELESTINO D Ot V72.84 12/13/2015 AVERY DO, MIRTHA Ot 285.9 12/13/2015 AVERY DO, MIRTHA Ot 780.79 12/13/2015 AVERY DO, MIRTHA Ot 790.29 12/13/2015 AVERY DO, MIRTHA Ot V58.69 12/13/2015 AVERY DO, MIRTHA Ot V70.0 12/13/2015 AVERY DO, MIRTHA Ot V76.12 12/13/2015 FRIED DO, CELESTINO D Ot R10.9 12/13/2015 FRIED DO, CELESTINO D Ot R10.11 12/13/2015 Ot V76.12 12/13/2015 Ot 305.1 12/13/2015 Ot 627.0 12/13/2015 Ot 719.46 12/13/2015 Ot 729.5 12/13/2015 Ot 780.79 12/13/2015 Ot V70.0 12/13/2015 Ot V70.0 12/13/2015 Ot V76.12 12/13/2015 Ot 793.80 12/13/2015 AVERY DO, MIRTHA Ot V76.12 12/13/2015 MAMIECH DOROQUE S Ot 618.01 12/13/2015 FENECH DOROQUE S Ot V72.63 12/13/2015 FENECH DOROQUE S Ot V74.8 12/13/2015 AVERY DO, MIRTHA Ot 279.49 12/13/2015 AVERY DO, MIRTHA Ot 285.9 12/13/2015 AVERY DO, MIRTHA Ot 443.0 12/13/2015 AVERY DO, MIRTHA Ot 716.90 12/13/2015 AVERY DO, MIRTHA Ot V58.69 12/13/2015 AVERY DO, MIRTHA Ot V76.12 12/13/2015 AVERY DO, MIRTHA Ot V70.0 12/13/2015 CELESTINO FRIED DO Ot V72.84 12/13/2015 AVERY DO, MIRTHA Ot 285.9 12/13/2015 AVERY DO, MIRTHA Ot 780.79 12/13/2015 AVERY DO, MIRTHA Ot 790.29 12/13/2015 AVERY DO, MIRTHA Ot V58.69 12/13/2015 AVERY DO, MIRTHA Ot V70.0 12/13/2015 AVERY DO, MIRTHA Ot V76.12 12/13/2015 CELESTINO FRIED DO Ot R10.9 12/13/2015 CELESTINO FRIED DO Ot R10.11 12/13/2015 Ot V76.12 12/13/2015 Ot 305.1 12/13/2015 Ot 627.0 12/13/2015 Ot 719.46 12/13/2015 Ot 729.5 12/13/2015 Ot 780.79 12/13/2015 Ot V70.0 12/13/2015 Ot V70.0 12/13/2015 Ot V76.12 12/13/2015 Ot 793.80 12/13/2015 AVERY DO, MIRTHA Ot V76.12 12/13/2015 NASRIN DOROQUE S Ot 618.01 12/13/2015 MAMIECH DOROQUE S Ot V72.63 12/13/2015 FENECH DOROQUE S Ot V74.8 12/13/2015 AVERY DO, MIRTHA Ot 279.49 12/13/2015 AVERY DO, MIRTHA Ot 285.9 12/13/2015 AVERY DO, MIRTHA Ot 443.0 12/13/2015 AVERY DO, MIRTHA Ot 716.90 12/13/2015 AVERY DO, MIRTHA Ot V58.69 12/13/2015 AVERY DO, MIRTHA Ot V76.12 12/13/2015 AVERY DO, MIRTHA Ot V70.0 12/13/2015 FRIED DO CELESTINO D Ot V72.84 12/13/2015 AVERY DO, MIRTHA Ot 285.9 12/13/2015 AVERY DO, MIRTHA Ot 780.79 12/13/2015 AVERY DO, MIRTHA Ot 790.29 12/13/2015 AVERY DO, MIRTHA Ot V58.69 12/13/2015 AVERY DO, MIRTHA Ot V70.0 12/13/2015 AVERY DO, MIRTHA Ot V76.12 12/13/2015 CELESTINO FRIED DO Ot R10.9 12/13/2015 FRIED CELESTINO CONNOLLY Ot R10.11 12/19/2015 CELESTINO FRIED DO Ot K81.1 CHRONIC CHOLECYSTITIS 02/06/2016 CELESTINO FRIED DO Ot K82.8 02/06/2016 CELESTINO FRIED DO Ot Z01.812 02/06/2016 FRIED CELESTINO CONNOLLY Ot Z11.2 03/17/2016 Ot V76.12 OT SCREEN MAMMO-MALIGN NEOPLASM OF [place] 03/17/2016 Ot 305.1 TOBACCO USE DISORDER 03/17/2016 Ot 627.0 PREMENOPAUSE MENORRHAGIA 03/17/2016 Ot 719.46 JOINT PAIN-L /LEG 03/17/2016 Ot 729.5 PAIN IN LIMB 03/17/2016 Ot 780.79 OTH MALAISE FATIGUE 03/17/2016 Ot V70.0 ROUTINE MEDICAL EXAM 03/17/2016 Ot V70.0 ROUTINE MEDICAL EXAM 03/17/2016 Ot V76.12 OTH SCREEN MAMMO-MALIGN NEOPLASM OF [place] 03/17/2016 Ot 793.80 UNSPEC ABNORMAL MAMMOGRAM 03/17/2016 MIRTHA AVERY DO Ot V76.12 OTH SCREEN MAMMO-MALIGN NEOPLASM OF [place] 03/17/2016 ROQUE ALEXANDRA DO Ot 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, MIDLINE 03/17/2016 ROQUE ALEXANDRA DO Ot V72.63 PRE-PROCEDURAL LABORATORY EXAMINATION 03/17/2016 ROQUE ALEXANDRA DO Ot V74.8 SCREEN-BACTERIAL DIS NEC 03/17/2016 MIRTHA AVERY DO Ot 279.49 AUTOIMMUNE DISEASE, NOT ELSEWHERE CLASSI 03/17/2016 MIRTHA AVERY DO Ot 285.9 ANEMIA NOS 03/17/2016 MIRTHA AVERY DO Ot 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 03/17/2016 MIRTHA AVERY DO Ot 716.90 ARTHROPATHY NOS-UNSPEC 03/17/2016 MIRTHA AVERY DO Ot V58.69 OTH MED,LT,CURRENT USE 03/17/2016 MIRTHA AVERY DO Ot V76.12 OTH SCREEN MAMMO-MALIGN NEOPLASM OF [place] 03/17/2016 MIRTHA AVERY DO Ot V70.0 ROUTINE MEDICAL EXAM 03/17/2016 CELESTINO FRIED DO Ot V72.84 EXAM PRE-OPERATIVE NOS 03/17/2016 MIRTHA AVERY DO Ot 285.9 ANEMIA NOS 03/17/2016 MIRTHA AVERY DO Ot 780.79 OTH MALAISE FATIGUE 03/17/2016 MIRTHA AVERY DO Ot 790.29 OTHER ABNORMAL GLUCOSE 03/17/2016 MIRTHA AVERY DO Ot V58.69 OTH MED,LT,CURRENT USE 03/17/2016 MIRTHA AVERY DO Ot V70.0 ROUTINE MEDICAL EXAM 03/17/2016 MIRTHA AVERY DO Ot V76.12 OTH SCREEN MAMMO-MALIGN NEOPLASM OF [place] 03/17/2016 CELESTINO FRIED DO Ot R10.9 UNSPECIFIED ABDOMINAL PAIN 03/17/2016 CELESTINO FRIED DO Ot R10.11 RIGHT UPPER QUADRANT PAIN 03/17/2016 CELESTINO FRIED DO Ot K82.8 OTHER SPECIFIED DISEASES OF GALLBLADDER 03/17/2016 CELESTINO FRIED DO Ot Z01.812 ENCOUNTER FOR PREPROCEDURAL LABORATORY E 03/17/2016 CELESTINO FRIED DO Ot Z11.2 ENCOUNTER FOR SCREENING FOR OTHER BACTER 03/17/2016 MIRTHA AVERY DO Ot Z12.31 ENCNTR SCREEN MAMMOGRAM FOR MALIGNANT NE 03/18/2016 MIRTHA AVERY DO Ot D50.8 OTHER IRON DEFICIENCY ANEMIAS 03/18/2016 MIRTHA AVERY DO Ot E53.8 DEFICIENCY OF OTHER SPECIFIED B GROUP 03/18/2016 MIRTHA AVERY DO Ot R73.9 HYPERGLYCEMIA, UNSPECIFIED 03/18/2016 MIRTHA AVERY DO Ot Z00.00 ENCNTR FOR GENERAL ADULT MEDICAL EXAM W/ 07/03/2016 Ot V76.12 OTH SCREEN MAMMO-MALIGN NEOPLASM OF [place] 07/03/2016 Ot 305.1 TOBACCO USE DISORDER 07/03/2016 Ot 627.0 PREMENOPAUSE MENORRHAGIA 07/03/2016 Ot 719.46 JOINT PAIN-L /LEG 07/03/2016 Ot 729.5 PAIN IN LIMB 07/03/2016 Ot 780.79 OTH MALAISE FATIGUE 07/03/2016 Ot V70.0 ROUTINE MEDICAL EXAM 07/03/2016 Ot V70.0 ROUTINE MEDICAL EXAM 07/03/2016 Ot V76.12 OTH SCREEN MAMMO-MALIGN NEOPLASM OF [place] 07/03/2016 Ot 793.80 UNSPEC ABNORMAL MAMMOGRAM 07/03/2016 MIRTHA AVERY DO Ot V76.12 OTH SCREEN MAMMO-MALIGN NEOPLASM OF [place] 07/03/2016 ROQUE ALEXANDRA DO Ot 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, MIDLINE 07/03/2016 ROQUE ALEXANDRA DO Ot V72.63 PRE-PROCEDURAL LABORATORY EXAMINATION 07/03/2016 ROQUE ALEXANDRA DO Ot V74.8 SCREEN-BACTERIAL DIS NEC 07/03/2016 MIRTHA AVERY DO Ot 279.49 AUTOIMMUNE DISEASE, NOT ELSEWHERE CLASSI 07/03/2016 MIRTHA AVERY DO Ot 285.9 ANEMIA NOS 07/03/2016 MIRTHA AVERY DO Ot 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 07/03/2016 MIRTHA AVERY DO Ot 716.90 ARTHROPATHY NOS-UNSPEC 07/03/2016 MIRTHA AVERY DO Ot V58.69 OTH MED,LT,CURRENT USE 07/03/2016 MIRTHA AVERY DO Ot V76.12 OTH SCREEN MAMMO-MALIGN NEOPLASM OF [place] 07/03/2016 MIRTHA AVERY DO Ot V70.0 ROUTINE MEDICAL EXAM 07/03/2016 CELESTINO FRIED DO Ot V72.84 EXAM PRE-OPERATIVE NOS 07/03/2016 MIRTHA AVERY DO Ot 285.9 ANEMIA NOS 07/03/2016 MIRTHA AVERY DO Ot 780.79 OTH MALAISE FATIGUE 07/03/2016 MIRTHA AVERY DO Ot 790.29 OTHER ABNORMAL GLUCOSE 07/03/2016 MIRTHA AVERY DO Ot V58.69 OTH MED,LT,CURRENT USE 07/03/2016 MIRTHA AVERY DO Ot V70.0 ROUTINE MEDICAL EXAM 07/03/2016 MIRTHA AVERY DO Ot V76.12 OTH SCREEN MAMMO-MALIGN NEOPLASM OF [place] 07/03/2016 CELESTINO FRIED DO Ot R10.9 UNSPECIFIED ABDOMINAL PAIN 07/03/2016 CELESTINO FRIED DO Ot R10.11 RIGHT UPPER QUADRANT PAIN 07/03/2016 CELESTINO FRIED DO Ot K82.8 OTHER SPECIFIED DISEASES OF GALLBLADDER 07/03/2016 CELESTINO FRIED DO Ot Z01.812 ENCOUNTER FOR PREPROCEDURAL LABORATORY E 07/03/2016 CELESTINO FRIED DO Ot Z11.2 ENCOUNTER FOR SCREENING FOR OTHER BACTER 07/03/2016 MIRTHA AVERY DO Ot Z12.31 ENCNTR SCREEN MAMMOGRAM FOR MALIGNANT NE 07/03/2016 MIRTHA AVERY DO Ot D50.8 OTHER IRON DEFICIENCY ANEMIAS 07/03/2016 MIRTHA AVERY DO Ot E53.8 DEFICIENCY OF OTHER SPECIFIED B GROUP 07/03/2016 MIRTHA AVERY DO Ot R73.9 HYPERGLYCEMIA, UNSPECIFIED 07/03/2016 MIRTHA AVERY DO Ot Z00.00 ENCNTR FOR GENERAL ADULT MEDICAL EXAM W/ 07/07/2016 MIRTHA AVERY DO Ot J01.31 ACUTE RECURRENT SPHENOIDAL SINUSITIS 07/14/2016 Ot V76.12 OTH SCREEN MAMMO-MALIGN NEOPLASM OF [place] 07/14/2016 Ot 305.1 TOBACCO USE DISORDER 07/14/2016 Ot 627.0 PREMENOPAUSE MENORRHAGIA 07/14/2016 Ot 719.46 JOINT PAIN-L /LEG 07/14/2016 Ot 729.5 PAIN IN LIMB 07/14/2016 Ot 780.79 OTH MALAISE FATIGUE 07/14/2016 Ot V70.0 ROUTINE MEDICAL EXAM 07/14/2016 Ot V70.0 ROUTINE MEDICAL EXAM 07/14/2016 Ot V76.12 OTH SCREEN MAMMO-MALIGN NEOPLASM OF [place] 07/14/2016 Ot 793.80 UNSPEC ABNORMAL MAMMOGRAM 07/14/2016 MIRTHA AVERY DO Ot V76.12 OTH SCREEN MAMMO-MALIGN NEOPLASM OF [place] 07/14/2016 ROQUE ALEXANDRA DO Ot 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, MIDLINE 07/14/2016 ROQUE ALEXANDRA DO Ot V72.63 PRE-PROCEDURAL LABORATORY EXAMINATION 07/14/2016 ROQUE ALEXANDRA DO Ot V74.8 SCREEN-BACTERIAL DIS NEC 07/14/2016 MIRTHA AVERY DO Ot 279.49 AUTOIMMUNE DISEASE, NOT ELSEWHERE CLASSI 07/14/2016 MIRTHA AVERY DO Ot 285.9 ANEMIA NOS 07/14/2016 MIRTHA AVERY DO Ot 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 07/14/2016 MIRTHA AVERY DO Ot 716.90 ARTHROPATHY NOS-UNSPEC 07/14/2016 MIRTHA AVERY DO Ot V58.69 OTH MED,LT,CURRENT USE 07/14/2016 MIRTHA AVERY DO Ot V76.12 OTH SCREEN MAMMO-MALIGN NEOPLASM OF [place] 07/14/2016 MIRTHA AVERY DO Ot V70.0 ROUTINE MEDICAL EXAM 07/14/2016 CELESTINO FRIED DO Ot V72.84 EXAM PRE-OPERATIVE NOS 07/14/2016 MIRTHA AVERY DO Ot 285.9 ANEMIA NOS 07/14/2016 MIRTHA AVERY DO Ot 780.79 OTH MALAISE FATIGUE 07/14/2016 MIRTHA AVERY DO Ot 790.29 OTHER ABNORMAL GLUCOSE 07/14/2016 MIRTHA AVERY DO Ot V58.69 OTH MED,LT,CURRENT USE 07/14/2016 MIRTHA AVERY DO Ot V70.0 ROUTINE MEDICAL EXAM 07/14/2016 MIRTHA AVERY DO Ot V76.12 OTH SCREEN MAMMO-MALIGN NEOPLASM OF [place] 07/14/2016 CELESTINO FRIED DO Ot R10.9 UNSPECIFIED ABDOMINAL PAIN 07/14/2016 CELESTINO FRIED DO Ot R10.11 RIGHT UPPER QUADRANT PAIN 07/14/2016 CELESTINO FRIED DO Ot K82.8 OTHER SPECIFIED DISEASES OF GALLBLADDER 07/14/2016 CELESTINO FRIED DO Ot Z01.812 ENCOUNTER FOR PREPROCEDURAL LABORATORY E 07/14/2016 CELESTINO FRIED DO Ot Z11.2 ENCOUNTER FOR SCREENING FOR OTHER BACTER 07/14/2016 MIRTHA AVERY DO Ot Z12.31 ENCNTR SCREEN MAMMOGRAM FOR MALIGNANT NE 07/14/2016 MIRTHA AVERY DO Ot D50.8 OTHER IRON DEFICIENCY ANEMIAS 07/14/2016 MIRTHA AVERY DO Ot E53.8 DEFICIENCY OF OTHER SPECIFIED B GROUP 07/14/2016 MIRTHA AVERY DO Ot R73.9 HYPERGLYCEMIA, UNSPECIFIED 07/14/2016 MIRTHA AVERY DO Ot Z00.00 ENCNTR FOR GENERAL ADULT MEDICAL EXAM W/ 07/14/2016 MIRTHA AVERY DO Ot J01.31 ACUTE RECURRENT SPHENOIDAL SINUSITIS 01/19/2017 ROQUE MONTELONGO MD Ot M94.261 CHONDROMALACIA, RIGHT KNEE 01/19/2017 ROQUE MONTELONGO MD Ot Z01.818 ENCOUNTER FOR OTHER PREPROCEDURAL EXAMIN 01/19/2017 ROQUE MONTELNOGO MD Ot Z11.2 ENCOUNTER FOR SCREENING FOR OTHER BACTER 01/20/2017 ROQUE MONTELONGO MD Ot E78.5 HYPERLIPIDEMIA, UNSPECIFIED 01/20/2017 ROQUE MONTELONGO MD Ot F03.90 UNSPECIFIED DEMENTIA WITHOUT BEHAVIORAL 01/20/2017 ROQUE MONTELONGO MD Ot I10 ESSENTIAL (PRIMARY) HYPERTENSION 01/20/2017 ROQUE MONTELONGO MD Ot I25.10 ATHSCL HEART DISEASE OF [place] CORONARY 01/20/2017 ROQUE MONTELONGO MD Ot J44.9 CHRONIC OBSTRUCTIVE PULMONARY DISEASE, U 01/20/2017 ROQUE MONTELONGO MD Ot M22.41 CHONDROMALACIA PATELLAE, RIGHT KNEE 01/20/2017 ROQUE MONTELONGO MD Ot M23.8X1 OTHER INTERNAL DERANGEMENTS OF RIGHT KNE 01/20/2017 ROQUE MONTELONGO MD Ot 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 01/20/2017 ROQUE MONTELONGO MD Ot Z87.891 PERSONAL HISTORY OF NICOTINE DEPENDENCE 01/25/2017 ROQUE MONTELONGO MD Ot M94.261 CHONDROMALACIA, RIGHT KNEE 01/25/2017 ROQUE MONTELONGO MD Ot Z01.818 ENCOUNTER FOR OTHER PREPROCEDURAL EXAMIN 01/25/2017 ROQUE MONTELONGO MD Ot Z11.2 ENCOUNTER FOR SCREENING FOR OTHER BACTER 01/26/2017 ROQUE MONTELONGO MD Ot E78.5 HYPERLIPIDEMIA, UNSPECIFIED 01/26/2017 ROQUE MONTELONGO MD Ot F03.90 UNSPECIFIED DEMENTIA WITHOUT BEHAVIORAL 01/26/2017 ROQUE MONTELONGO MD Ot I10 ESSENTIAL (PRIMARY) HYPERTENSION 01/26/2017 ROQUE MONTELONGO MD Ot I25.10 ATHSCL HEART DISEASE OF [place] CORONARY 01/26/2017 ROQUE MONTELONGO MD Ot J44.9 CHRONIC OBSTRUCTIVE PULMONARY DISEASE, U 01/26/2017 ROQUE MONTELONGO MD Ot M22.41 CHONDROMALACIA PATELLAE, RIGHT KNEE 01/26/2017 ROQUE MONTELONGO MD Ot M23.8X1 OTHER INTERNAL DERANGEMENTS OF RIGHT KNE 01/26/2017 ROQUE MONTELONGO MD Ot Z79.899 OTHER DETENTION (CURRENT) DRUG THERAPY 01/26/2017 ROQUE MONTELONGO MD Ot Z87.891 PERSONAL HISTORY OF NICOTINE DEPENDENCE 01/26/2017 ROQUE MONTELONGO MD Ot E78.5 HYPERLIPIDEMIA, UNSPECIFIED 01/26/2017 ROQUE MONTELONGO MD Ot F03.90 UNSPECIFIED DEMENTIA WITHOUT BEHAVIORAL 01/26/2017 ROQUE MONTELONGO MD Ot I10 ESSENTIAL (PRIMARY) HYPERTENSION 01/26/2017 ROQUE MONTELONGO MD Ot I25.10 ATHSCL HEART DISEASE OF [place] CORONARY 01/26/2017 ROQUE MONTELONGO MD Ot J44.9 CHRONIC OBSTRUCTIVE PULMONARY DISEASE, U 01/26/2017 ROQUE MONTELONGO MD Ot M22.41 CHONDROMALACIA PATELLAE, RIGHT KNEE 01/26/2017 ROQUE MONTELONGO MD Ot M23.8X1 OTHER INTERNAL DERANGEMENTS OF RIGHT KNE 01/26/2017 ROQUE MONTELONGO MD Ot 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 01/26/2017 ROQUE MONTELONGO MD P Ot Z87.891 PERSONAL HISTORY OF NICOTINE DEPENDENCE 06/07/2017 Ot V70.0 ROUTINE MEDICAL EXAM 06/07/2017 Ot V76.12 OTH SCREEN MAMMO-MALIGN NEOPLASM OF [place] 06/07/2017 Ot 793.80 UNSPEC ABNORMAL MAMMOGRAM 06/07/2017 MIRTHA AVERY DO Ot V76.12 OTH SCREEN MAMMO-MALIGN NEOPLASM OF [place] 06/07/2017 NASRIN DO ROQUE Siddiqui Ot 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, MIDLINE 06/07/2017 NASRIN CONNOLLY ROQUE Chen Ot V72.63 PRE-PROCEDURAL LABORATORY EXAMINATION 06/07/2017 MAMIMIKE CONNOLLY ROQUE Chen Ot V74.8 SCREEN-BACTERIAL DIS NEC 06/07/2017 MIRTHA AVERY DO Ot 279.49 AUTOIMMUNE DISEASE, NOT ELSEWHERE CLASSI 06/07/2017 MIRTHA AVERY DO Ot 285.9 ANEMIA NOS 06/07/2017 MIRTHA AVERY DO Ot 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 06/07/2017 MIRTHA AVERY DO Ot 716.90 ARTHROPATHY NOS-UNSPEC 06/07/2017 MIRTHA AVERY DO Ot V58.69 OTH MED,LT,CURRENT USE 06/07/2017 MIRTHA AVERY DO Ot V76.12 OTH SCREEN MAMMO-MALIGN NEOPLASM OF [place] 06/07/2017 MIRTHA AVERY DO Ot V70.0 ROUTINE MEDICAL EXAM 06/07/2017 CELESTINO FRIED DO Ot V72.84 EXAM PRE-OPERATIVE NOS 06/07/2017 MIRTHA AVERY DO Ot 285.9 ANEMIA NOS 06/07/2017 MIRTHA AVERY DO Ot 780.79 OTH MALAISE FATIGUE 06/07/2017 MIRTHA AVERY DO Ot 790.29 OTHER ABNORMAL GLUCOSE 06/07/2017 MIRTHA AVERY DO Ot V58.69 OTH MED,LT,CURRENT USE 06/07/2017 MIRTHA AVERY DO Ot V70.0 ROUTINE MEDICAL EXAM 06/07/2017 MIRTHA AVERY DO Ot V76.12 OTH SCREEN MAMMO-MALIGN NEOPLASM OF [place] 06/07/2017 CELESTINO FRIED DO Ot R10.9 UNSPECIFIED ABDOMINAL PAIN 06/07/2017 CELESTINO FRIED DO Ot R10.11 RIGHT UPPER QUADRANT PAIN 06/07/2017 CELESTINO FRIED DO Ot K82.8 OTHER SPECIFIED DISEASES OF GALLBLADDER 06/07/2017 CELESTINO FRIED DO Ot Z01.812 ENCOUNTER FOR PREPROCEDURAL LABORATORY E 06/07/2017 CELESTINO FRIED DO Ot Z11.2 ENCOUNTER FOR SCREENING FOR OTHER BACTER 06/07/2017 MIRTHA AVERY DO Ot Z12.31 ENCNTR SCREEN MAMMOGRAM FOR MALIGNANT NE 06/07/2017 MIRTHA AVERY DO Ot D50.8 OTHER IRON DEFICIENCY ANEMIAS 06/07/2017 MIRTHA AVERY DO Ot E53.8 DEFICIENCY OF OTHER SPECIFIED B GROUP 06/07/2017 MIRTHA AVERY DO Ot R73.9 HYPERGLYCEMIA, UNSPECIFIED 06/07/2017 MIRTHA AVERY DO Ot Z00.00 ENCNTR FOR GENERAL ADULT MEDICAL EXAM 06/07/2017 MIRTHA AVERY DO Ot J01.31 ACUTE RECURRENT SPHENOIDAL SINUSITIS 06/15/2017 MIRTHA AVERY DO Ot Z12.31 ENCNTR SCREEN MAMMOGRAM FOR MALIGNANT NE 07/02/2017 MIRTHA AVERY DO Ot Z12.31 ENCNTR SCREEN MAMMOGRAM FOR MALIGNANT NE 07/26/2017 MIRTHA AVERY DO Ot E53.8 DEFICIENCY OF OTHER SPECIFIED B GROUP 07/26/2017 MIRTHA AVERY DO Ot E78.00 PURE HYPERCHOLESTEROLEMIA, UNSPECIFIED 07/26/2017 BLANCHE AVERY DOI Ot E78.1 PURE HYPERGLYCERIDEMIA 08/04/2017 MIRTHA AVERY DO Ot E53.8 DEFICIENCY OF OTHER SPECIFIED B GROUP 08/04/2017 MIRTHA AVERY DO Ot E78.00 PURE HYPERCHOLESTEROLEMIA, UNSPECIFIED 08/04/2017 BLANCHE AVERY DOI Ot E78.1 PURE HYPERGLYCERIDEMIA 11/12/2017 ROQUE ALEXANDRA DO Ot N39.3 STRESS INCONTINENCE (FEMALE) (MALE) 11/12/2017 ROQUE ALEXANDRA DO Ot N81.10 CYSTOCELE, UNSPECIFIED 11/12/2017 ROQUE ALEXANDRA DO Ot Z01.818 ENCOUNTER FOR OTHER PREPROCEDURAL EXAMIN Procedures There is no data. Results Test Result Range Methicillin resistant Staphylococcus aureus (MRSA) screening culture - 09:45 Methicillin resistant Staphylococcus aureus (MRSA) screening culture NEG NRG Complete blood count (CBC) with automated white blood cell (WBC) differential - 07/23/17 11:20 Blood leukocytes automated count (number/volume) 6.3 10*3/uL 4.3-11.0 Blood erythrocytes automated count (number/volume) 4.44 10*6/uL 4.35-5.85 Venous blood hemoglobin measurement (mass/volume) 13.2 g/dL 11.5-16.0 Blood hematocrit (volume fraction) 40 % 35-52 Automated erythrocyte mean corpuscular volume 91 [foz_us] 80-99 Automated erythrocyte mean corpuscular hemoglobin (mass per erythrocyte) 30 pg 25-34 Automated erythrocyte mean corpuscular hemoglobin concentration measurement ( mass/volume) 33 g/dL 32-36 Automated erythrocyte distribution width ratio 13.7 % 10.0-14.5 Automated blood platelet count (count/volume) 272 10*3/uL 130-400 Automated blood platelet mean volume measurement 10.2 [foz_us] 7.4-10.4 Automated blood neutrophils/100 leukocytes 53 % 42-75 Automated blood lymphocytes/100 leukocytes 36 % 12-44 Blood monocytes/100 leukocytes 8 % 0-12 Automated blood eosinophils/100 leukocytes 2 % 0-10 Automated blood basophils/100 leukocytes 1 % 0-10 Blood neutrophils automated count (number/volume) 3.3 10*3 1.8-7.8 Blood lymphocytes automated count (number/volume) 2.3 10*3 1.0-4.0 Blood monocytes automated count (number/volume) 0.5 10*3 0.0-1.0 Automated eosinophil count 0.2 10*3/uL 0.0-0.3 Automated blood basophil count (count/volume) 0.0 10*3/uL 0.0-0.1 Comprehensive metabolic panel - 07/23/17 11:20 Serum or plasma sodium measurement (moles/volume) 142 mmol/L 135-145 Serum or plasma potassium measurement (moles/volume) 4.0 mmol/L 3.6-5.0 Serum or plasma chloride measurement (moles/volume) 106 mmol/L 98-107 Carbon dioxide 27 mmol/L 21-32 Serum or plasma anion gap determination (moles/volume) 9 mmol/L 5-14 Serum or plasma urea nitrogen measurement (mass/volume) 20 mg/dL 7-18 Serum or plasma creatinine measurement (mass/volume) 0.93 mg/dL 0.60-1.30 Serum or plasma urea nitrogen/creatinine mass ratio 22 NRG Serum or plasma creatinine measurement with calculation of estimated glomerular filtration rate > NRG Serum or plasma glucose measurement (mass/volume) 97 mg/dL 70-105 Serum or plasma calcium measurement (mass/volume) 9.1 mg/dL 8.5-10.1 Serum or plasma total bilirubin measurement (mass/volume) 0.7 mg/dL 0.1-1.0 Serum or plasma alkaline phosphatase measurement (enzymatic activity/volume) 73 U/L 40-136 Serum or plasma aspartate aminotransferase measurement (enzymatic activity/ volume) 21 U/L 5-34 Serum or plasma alanine aminotransferase measurement (enzymatic activity/volume ) 19 U/L 0-55 Serum or plasma protein measurement (mass/volume) 6.9 g/dL 6.4-8.2 Serum or plasma albumin measurement (mass/volume) 4.3 g/dL 3.2-4.5 Lipid 1996 panel - 07/23/17 11:20 Serum or plasma triglyceride measurement (mass/volume) 68 mg/dL <150 Serum or plasma cholesterol measurement (mass/volume) 218 mg/dL < 200 Serum or plasma cholesterol in HDL measurement (mass/volume) 61 mg/ dL 40-60 Cholesterol in LDL [mass/volume] in serum or plasma by direct assay 158 mg/dL 1-129 Serum or plasma cholesterol in VLDL measurement (mass/volume) 14 mg/ dL 5-40 THYROID STIMULATING HORMONE - 07/23/17 11:20 THYROID STIMULATING HORMONE 0.93 u[iU]/mL 0.35-4.94 Serum or plasma folate measurement (mass/volume) - 07/23/17 11:20 Serum or plasma folate measurement (mass/volume) 17.0 % 1.5-24.0 Cyanocobalamin measurement - 07/23/17 11:20 Vitamin B12 891 pg/mL 200-1000 Methicillin resistant Staphylococcus aureus (MRSA) screening culture - 13:14 Methicillin resistant Staphylococcus aureus (MRSA) screening culture NEG NRG Complete blood count (CBC) with automated white blood cell (WBC) differential - 11/17/17 10:05 Blood leukocytes automated count (number/volume) 5.4 10*3/uL 4.3-11.0 Blood erythrocytes automated count (number/volume) 4.45 10*6/uL 4.35-5.85 Venous blood hemoglobin measurement (mass/volume) 13.3 g/dL 11.5-16.0 Blood hematocrit (volume fraction) 40 % 35-52 Automated erythrocyte mean corpuscular volume 91 [foz_us] 80-99 Automated erythrocyte mean corpuscular hemoglobin (mass per erythrocyte) 30 pg 25-34 Automated erythrocyte mean corpuscular hemoglobin concentration measurement ( mass/volume) 33 g/dL 32-36 Automated erythrocyte distribution width ratio 13.9 % 10.0-14.5 Automated blood platelet count (count/volume) 256 10*3/uL 130-400 Automated blood platelet mean volume measurement 10.3 [foz_us] 7.4-10.4 Automated blood neutrophils/100 leukocytes 59 % 42-75 Automated blood lymphocytes/100 leukocytes 30 % 12-44 Blood monocytes/100 leukocytes 9 % 0-12 Automated blood eosinophils/100 leukocytes 2 % 0-10 Automated blood basophils/100 leukocytes 0 % 0-10 Blood neutrophils automated count (number/volume) 3.1 10*3 1.8-7.8 Blood lymphocytes automated count (number/volume) 1.6 10*3 1.0-4.0 Blood monocytes automated count (number/volume) 0.5 10*3 0.0-1.0 Automated eosinophil count 0.1 10*3/uL 0.0-0.3 Automated blood basophil count (count/volume) 0.0 10*3/uL 0.0-0.1 Blood type T Indirect antibody screen panel - 11/17/17 10:05 ABO+Rh group AP NRG Transfusion band number [id number] NRG Blood group antibody screen NEGATIVE NRG Encounters ACCT No. Visit Date/Time Discharge Status Pt. Type Provider Facility Loc./Unit Complaint [id number] 07/23/2017 10:39:00 07/23/2017 23:59:59 CLS Outpatient MIRTHA AVERY DO [facility] LAB Z00.00 E53.8 E78.0 E78.1 [id number] 06/14/2017 15:20:00 06/14/2017 23:59:59 CLS Outpatient MIRTHA AVERY DO [facility] RAD SCREENING [id number] 01/20/2017 08:17:00 01/20/2017 13:15:00 DIS Outpatient ROQUE MONTELONGO MD [facility] RIGHT KNEE CHONDROMALASIA [id number] 01/19/2017 09:22:00 01/19/2017 10:27:00 DIS Outpatient ROQUE MONTELONGO MD [facility] PREOP RIGHT KNEE CHONDROMALASIA [id number] 07/03/2016 14:01:00 07/03/2016 23:59:59 CLS Outpatient AVERY DO, MIRTHA [facility] RAD ACUTE RECURRENT SPHENOIDAL SINUSITIS [id number] 03/17/2016 05:07:00 03/17/2016 23:59:59 CLS Outpatient AVERY DO, MIRTHA [facility] LAB SCREENING [id number] 03/16/2016 15:01:00 03/16/2016 23:59:59 CLS Outpatient AVERY DO, MIRTHA [facility] RAD SCREENING [id number] 12/19/2015 06:00:00 12/19/2015 23:59:59 CLS Outpatient FRIED DO, CELESTINO D [facility] DYSKNESIA [id number] 12/13/2015 11:00:00 12/13/2015 23:59:59 CLS Outpatient FRIED DO, CELESTINO D [facility] PREOP DYSKNESIA [id number] 11/05/2015 09:08:00 11/05/2015 23:59:59 CLS Outpatient FRIED DO, CELESTINO D [facility] CARD RUQ ABD PAIN [id number] 11/01/2015 10:50:00 11/01/2015 23:59:59 CLS Outpatient FRIED DO, CELESTINO D [facility] RAD ABD PAIN [id number] 07/25/2015 13:30:00 07/25/2015 23:59:59 CLS Outpatient AVERY DO, MIRTHA [facility] RAD SCREENING [id number] 04/26/2015 05:03:00 04/26/2015 23:59:59 CLS Outpatient AVERY DO, MIRTHA [facility] LAB ANEMIA [id number] 07/23/2014 14:03:00 07/23/2014 23:59:59 CLS Outpatient AVERY DO, MIRTHA [facility] RAD ROUTINE [id number] 07/10/2014 11:34:00 07/10/2014 15:00:00 DIS Outpatient FRIED DOCELESTINO D [facility] SCREENING [id number] 07/05/2014 07:28:00 07/05/2014 23:59:59 CLS Outpatient FRIED DORAYMONDTT D [facility] PREOP SCREENING [id number] 05/14/2014 04:57:00 05/14/2014 23:59:59 CLS Outpatient AVERY DO, MIRTHA [facility] LAB SCREENING [id number] 09/21/2013 14:46:00 09/21/2013 23:59:59 CLS Outpatient AVERY DO, MIRTHA [facility] LAB RAYNAUD'S SYNDROME,JOINT PAIN, MEDICATION MONITORI [id number] 08/03/2013 06:57:00 08/04/2013 14:15:00 DIS Outpatient NASRIN CONNOLLY ROQUE S [facility] GRADE III CYSTOCELE [id number] 07/28/2013 14:13:00 07/28/2013 23:59:59 CLS Outpatient NASRIN DO ROQUE S [facility] PREOP GRADE III CYSTOCELE [id number] 07/21/2013 14:02:00 07/21/2013 23:59:59 CLS Outpatient AVERY DO, MIRTHA [facility] RAD SCREENING [id number] 11/18/2017 10:00:00 PEN Preadmit ROQUE ALEXANDRA DO S [facility] CYSTOCELE, INCONTINENCE [id number] 11/17/2017 10:00:00 ACT Outpatient NASRIN DOROQUE S [facility] PREOP CYSTOCELE [id number] 04/11/2015 13:58:00 Document Registration [id number] 08/09/2012 14:12:00 Document Registration [id number] 07/20/2012 13:59:00 Document Registration [id number] 05/29/2011 13:57:00 Document Registration [id number] 05/06/2011 05:01:00 Document Registration
[2017-11-18] MEDS ORDERED: MEPERIDINE (DEMEROL) INJ 50 MG/ML IVP PRN (11:00)
[2017-11-18] MEDS ORDERED: ONDANSETRON 4 MG/2 ML (SDV) Z0FRAN IVP PRN (11:00)
[2017-11-18] MEDS: morphine INJ 10 MG/ML 1ML (SYR OR VIAL) IVP PRN ×3 (11:02→11:22)
[2017-11-18] MEDS: KETOROLAC 30 MG/ML VIAL IV SCH ×3 (11:10→23:19)
[2017-11-18 12:00] VITALS: BP 105/69
[2017-11-18] MEDS: ONDANSETRON 4 MG/2 ML (SDV) Z0FRAN IV PRN ×2 (13:12→18:18)
[2017-11-18] MEDS: D5 LR IV SOLUTION 1,000 ML IV SCH ×2 (15:14→23:18)
[2017-11-18 16:04] VITALS: BP 116/65
--- NOTE | 2017-11-18 19:25 | OPERATIVE REPORT ---
DATE OF SERVICE: 11/18/2017 PREOPERATIVE DIAGNOSIS: Grade III cystocele with stress urinary incontinence. POSTOPERATIVE DIAGNOSIS: Grade III cystocele with stress urinary incontinence. PROCEDURE: Anterior colporrhaphy with a mid urethral sling placement by Dr. Soler. SURGEON: Roque Alexandra DO COSURGEON: Ashutosh Soler MD ANESTHESIA: General endotracheal. ESTIMATED BLOOD LOSS: 200 mL. URINE OUTPUT: 350 mL clear at the end of procedure. FLUIDS: 1700 mL lactate Ringer's solution. FINDINGS: Grade III cystocele as well as findings deferred to Dr. Soler. SPECIMEN SENT: None. INDICATIONS FOR PROCEDURE: This 57-year-old female is a repeat patient of mine, who underwent anterior colporrhaphy approximately 5 years ago and has had significant breakdown of that colporrhaphy repair in a 5-year timeframe, which she admits to not compliant to all of my precautions and has continued not to lose weight, hold her bladder for long periods of time and does do things that cause increased intra-abdominal stress, which has led to a rapid breakdown of his anterior colporrhaphy. She saw me in the office earlier this year to discuss proceeding with a repeat repair. She also described some stress urinary incontinence at which point I referred her to our urologist Dr. Soler, who found her to be a candidate for mid urethral sling. We decided to proceed with the case at the same time due to the proximity of the incisions. Risks of the procedure were discussed with the patient in detail including risks of bleeding, infection, damage to the bladder, urinary retention and ongoing urinary incontinence as well as risk of breakdown of the anterior colporrhaphy at an average timeframe of 8 to 10 years. After the patient recognized all the risks and all of her questions answered, consent was obtained in the preoperative area and the patient was taken back to the operating room. OPERATIVE REPORT IN DETAIL: Once in the operating room, general anesthesia was found to be adequate, placed in dorsal lithotomy position, prepped and draped in normal sterile fashion. A Price catheter was placed using sterile technique. A weighted speculum was inserted into the patient's vagina, which allowed us to visualize easily this grade III cystocele, which comes out to the level of the vaginal introitus. The margins of the cystocele are injected using vasopressin 20 units and 100 mL of normal saline concentration, which was used for both hydrodissection as well as hemostasis during my procedure. All extents of the cystocele are infiltrated at the vaginal mucosal level. I then make a lateral incision at the base of the bladder and I am able to undermine this using Metzenbaum scissors. I undermined down the midline using Metzenbaum scissors and then I make an incision down the midline of the cystocele defect using the Metzenbaum scissors. I then dissected the vesicovaginal fascia off the submucosa to the lateral aspects of the cystocele. I then used 0 Vicryl suture to plicate the cystocele. Using this fascia as my anchor, the suture is placed in several layers, which ended up reducing the cystocele. I then trimmed the excess vaginal mucosa and I extended the incision more distally at the urethra to allow Dr. Soler to proceed with his portion of the procedure. Dr. Soler then takes over and places the mid urethral sling and a cystoscopy, at which point he notes no damage to the bladder as well as no defects of the bladder. The case was then handed back over to me to proceed with closure. I closed the vaginal mucosa using 3-0 Vicryl suture in running locked fashion. A FloSeal is introduced due to a small amount of bleeding from the right side of his sling placement. Once the mucosa was closed, I packed the vagina using vaginal packing and Premarin cream. Price catheter was left in place. The patient tolerated the procedure well and was taken to recovery area in stable condition. Lap and sponge counts were correct at the end of the procedure. Instrument counts are correct as well. Job ID: [id number] DocumentID: [id number] Dictated Date: 11/18/2017 10:52:18 [employer] Specialist Date: 11/18/2017 19:24:21 Dictated By: ROQUE ALEXANDRA DO
[2017-11-18 20:50] VITALS: BP 115/67
--- NOTE | 2017-11-18 20:52 | OPERATIVE REPORT ---
DATE OF SERVICE: 11/18/2017 PREOPERATIVE DIAGNOSES: On my part, urinary incontinence with overactive bladder and ISD. POSTOPERATIVE DIAGNOSES: On my part, urinary incontinence with overactive bladder and ISD. OPERATION PERFORMED: Pubovaginal sling and cystoscopy. SURGEON: Ashutosh Medina MD ANESTHESIA: General. COMPLICATIONS: None. DESCRIPTION OF PROCEDURE: After Dr. Marc performed a cystotomy surgery that he will dictate, I went ahead and passed the Solyx device sling on both sides using the described technique. The sling was sitting nicely under the mid urethra; however, I noticed that Dr. Marc has closed the vaginal wall. So, I removed the sling and Dr. Marc re-opened the incision, had the sling on both sides. The sling was sitting nicely under the mid urethra with no tension, no twist and passage of a curved hemostat easily between it and the underlying tissues. I removed the Price catheter and performed cystoscopy to confirm the integrity of the bladder, ureteral orifices, sphincter and urethra. I left the bladder full. I removed the cystoscope and performed Valsalva maneuver manually. There was some leakage, so I tightened the sling and the leakage improved a lot, but just a little dribble, which I elected to leave like that, otherwise she would not be able to void especially with her size. So, I re-inserted a Price catheter draining clear fluid and Dr. Marc proceeded with the rest of the surgery that he will dictate. Job ID: [id number] DocumentID: [id number] Dictated Date: 11/18/2017 10:33:45 Preschool Director Date: 11/18/2017 18:57:36 Dictated By: ASHUTOSH MEDINA MD
[2017-11-18 23:35] VITALS: BP 115/70
[2017-11-19 04:07] VITALS: BP 118/65
[2017-11-19 05:40] LABS: BASOPHILS % (AUTO) 0 % (0-10); EOSINOPHILS # (AUTO) 0.1 10^3/uL (0.0-0.3); EOSINOPHILS % (AUTO) 1 % (0-10); LYMPHOCYTES # (AUTO) 2.1 X 10^3 (1.0-4.0); LYMPHOCYTES % (AUTO) 25 % (12-44); MEAN CORPUSCULAR HEMOGLOBIN 30 PG (25-34); MEAN CORPUSCULAR HGB CONC 33 G/DL (32-36); MEAN CORPUSCULAR VOLUME 92 FL (80-99); MEAN PLATELET VOLUME 10.2 FL (7.4-10.4); MONOCYTES # (AUTO) 1.1 X 10^3 (0.0-1.0); MONOCYTES % (AUTO) 12 % (0-12); NEUTROPHILS # (AUTO) 5.3 X 10^3 (1.8-7.8); NEUTROPHILS % (AUTO) 62 % (42-75); PLATELET COUNT 220 10^3/uL (130-400); RED BLOOD COUNT 3.67 10^6/uL (4.35-5.85); WHITE BLOOD COUNT 8.7 10^3/uL (4.3-11.0)
[2017-11-19 06:12] LABS: ANION GAP 9 MMOL/L (5-14); BLOOD UREA NITROGEN 11 MG/DL (7-18); BUN/CREATININE RATIO 16; CALCIUM 8.1 MG/DL (8.5-10.1); CARBON DIOXIDE 25 MMOL/L (21-32); CHLORIDE 108 MMOL/L (98-107); GFR ESTIMATED > 60; GLUCOSE 112 MG/DL (70-105); POTASSIUM 3.6 MMOL/L (3.6-5.0); SODIUM 142 MMOL/L (135-145)
[2017-11-19] MEDS: KETOROLAC 30 MG/ML VIAL IV SCH (06:14)
[2017-11-19 08:00] VITALS: BP 108/61
[2017-11-19] MEDS ORDERED: IBUPROFEN 600 MG (MOTRIN) TAB PO SCH (08:00)
[2017-11-19] MEDS ORDERED: DOCUSATE SODIUM 100 MG (COLACE) CAP PO SCH (09:00)
[2017-11-19] MEDS ORDERED: CIPR-225 PO (11:04)
[2017-11-19] MEDS ORDERED: ENOXAPARIN 40 MG/0.4 ML (LOVENOX) SYR ONE (11:14)
[2017-11-19 11:30] VITALS: BP 108/71
[2017-11-19 12:00] VITALS: BP 108/71
[2017-11-19] MEDS ORDERED: ESTROGENS CONJ. CREAM 30 GM (PREMARIN) TUBE VG SCH ×2 (12:00→21:00)
[2017-11-20] MEDS ORDERED: ENOXAPARIN 40 MG/0.4 ML (LOVENOX) SYR SC SCH (09:00)
== END 2017-11-19 12:00 | disposition home or self-care (01) ==
LOC: SDC 08:17 → WS 11:50 → SDC 11-19 12:00
PROVIDERS: ATTEND Obstetrics & Gynecology
DX: N81.11 Cystocele, midline (principal); N39.3 Stress incontinence (female) (male); E66.9 Obesity, unspecified; Z68.41 Body mass index [BMI] 40.0-44.9, adult
CPT/HCPCS: 36415; 80048; 85025; 94664

== ENCOUNTER → 2018-08-04 | Outpatient (CLI) | payer BC ==
[~2018-08-04] MED LIST changes: +ACHD5005 PO; +CIPR-225 PO; +DOCU100C37 PO; +HYDR-34 PO; -HYDR-3812 PO; -HYDR-3816 PO; +Hydrocodone Bit/Acetaminophen PO; +IBUP-1773 PO
[2018-08-04 08:29] LABS: BASOPHILS % (AUTO) 0 % (0-10); EOSINOPHILS # (AUTO) 0.1 10^3/uL (0.0-0.3); EOSINOPHILS % (AUTO) 2 % (0-10); HEMATOCRIT 39 % (35-52); HEMOGLOBIN 13.2 G/DL (11.5-16.0); LYMPHOCYTES # (AUTO) 1.7 X 10^3 (1.0-4.0); LYMPHOCYTES % (AUTO) 31 % (12-44); MEAN CORPUSCULAR HEMOGLOBIN 30 PG (25-34); MEAN CORPUSCULAR HGB CONC 34 G/DL (32-36); MEAN CORPUSCULAR VOLUME 91 FL (80-99); MEAN PLATELET VOLUME 10.4 FL (7.4-10.4); MONOCYTES # (AUTO) 0.7 X 10^3 (0.0-1.0); MONOCYTES % (AUTO) 12 % (0-12); NEUTROPHILS # (AUTO) 3.1 X 10^3 (1.8-7.8); NEUTROPHILS % (AUTO) 55 % (42-75); PLATELET COUNT 251 10^3/uL (130-400); RED BLOOD COUNT 4.35 10^6/uL (4.35-5.85); WHITE BLOOD COUNT 5.6 10^3/uL (4.3-11.0)
[2018-08-04 08:51] LABS: ALBUMIN 4.3 GM/DL (3.2-4.5); BILIRUBIN,TOTAL 0.7 MG/DL (0.1-1.0); CALCIUM 9.4 MG/DL (8.5-10.1); CREATININE SERUM 1.03 MG/DL (0.60-1.30); POTASSIUM 3.9 MMOL/L (3.6-5.0); TOTAL PROTEIN 6.9 GM/DL (6.4-8.2)
== END ==
LOC: LAB 05:11
PROVIDERS: ATTEND Internal Medicine
DX: Z00.00 Encounter for general adult medical examination without abnormal findings (principal); E78.1 Pure hyperglyceridemia; E78.00 Pure hypercholesterolemia, unspecified
CPT/HCPCS: 36415; 80053; 80061; 84443; 85025

== ENCOUNTER → 2018-08-19 | Outpatient (CLI) | payer BC ==
--- NOTE | 2018-08-22 18:05 | Diagnostic Imaging Report ---
INDICATION: Screening. The current study was also evaluated with a Computer Aided Detection (CAD) system. 3D tomosynthesis was also performed and reviewed. COMPARISON: Comparison made with prior examinations from 07/20/2012 through 06/14/2017. FINDINGS: The fibroglandular tissue is heterogeneously dense bilaterally. There are a few benign-type calcifications. There is no new dominant mass, spiculated lesion, or suspicious calcification identified. Skin, nipples, and axillae are unremarkable. IMPRESSION: Benign. ACR BI-RADS Category 2: Benign findings. Result letter will be mailed to the patient. Note: At least 10% of breast cancer is not imaged by mammography. Dictated by: Dictated on workstation # [id number]
== END ==
LOC: RAD 13:40
PROVIDERS: ATTEND Internal Medicine
DX: Z12.31 Encounter for screening mammogram for malignant neoplasm of breast (principal)
CPT/HCPCS: 77067

== ENCOUNTER → 2019-07-25 | Outpatient (CLI) | payer BC ==
[~2019-07-25] MED LIST changes: +CYAN-41 PO; -CYAN10006 PO
--- NOTE | 2019-07-25 21:00 | Diagnostic Imaging Report ---
INDICATION: Screening The current study was also evaluated with a Computer Aided Detection (CAD) system. 3-D Tomographic imaging was also performed. Comparison is made with prior examination from 08/19/2018, 06/14/2017, and 03/16/16. FINDINGS: There are scattered fibroglandular densities bilaterally. There are few benign type calcifications. There is no dominant mass, spiculated lesion or suspicious calcification identified. Skin, nipples and axilla are unremarkable. IMPRESSION: ACR BI-RADS Category 2: Benign findings. Result letter will be mailed to the patient. Note: At least 10% of breast cancer is not imaged by mammography. Dictated by: Dictated on workstation # [id number]
== END ==
LOC: RAD 13:28
PROVIDERS: ATTEND Internal Medicine
DX: Z12.31 Encounter for screening mammogram for malignant neoplasm of breast (principal)
CPT/HCPCS: 77067

== ENCOUNTER → 2019-08-15 | Outpatient (CLI) | payer BC ==
[2019-08-15 07:00] LABS: BASOPHILS % (AUTO) 1 % (0-10); EOSINOPHILS # (AUTO) 0.1 10^3/uL (0.0-0.3); EOSINOPHILS % (AUTO) 3 % (0-10); HEMATOCRIT 43 % (35-52); HEMOGLOBIN 14.6 G/DL (11.5-16.0); LYMPHOCYTES # (AUTO) 1.8 X 10^3 (1.0-4.0); LYMPHOCYTES % (AUTO) 34 % (12-44); MEAN CORPUSCULAR HEMOGLOBIN 30 PG (25-34); MEAN CORPUSCULAR HGB CONC 34 G/DL (32-36); MEAN CORPUSCULAR VOLUME 89 FL (80-99); MEAN PLATELET VOLUME 10.8 FL (7.4-10.4); MONOCYTES # (AUTO) 0.6 X 10^3 (0.0-1.0); MONOCYTES % (AUTO) 12 % (0-12); NEUTROPHILS # (AUTO) 2.6 X 10^3 (1.8-7.8); NEUTROPHILS % (AUTO) 50 % (42-75); PLATELET COUNT 252 10^3/uL (130-400); RED CELL DISTRIBUTION WIDTH 14.2 % (10.0-14.5); WHITE BLOOD COUNT 5.1 10^3/uL (4.3-11.0)
[2019-08-15 07:22] LABS: ALBUMIN 4.4 GM/DL (3.2-4.5); BILIRUBIN,TOTAL 0.7 MG/DL (0.1-1.0); CALCIUM 9.2 MG/DL (8.5-10.1); CREATININE SERUM 0.97 MG/DL (0.60-1.30); POTASSIUM 3.7 MMOL/L (3.6-5.0); TOTAL PROTEIN 7.2 GM/DL (6.4-8.2)
== END ==
LOC: LAB 05:09
PROVIDERS: ATTEND Internal Medicine
DX: Z00.00 Encounter for general adult medical examination without abnormal findings (principal); E78.1 Pure hyperglyceridemia; E78.00 Pure hypercholesterolemia, unspecified; E53.8 Deficiency of other specified B group vitamins; R73.9 Hyperglycemia, unspecified
CPT/HCPCS: 36415; 80053; 80061; 82607; 82746; 83036; 84443; 85025

== ENCOUNTER → 2020-05-27 | Outpatient (CLI) | payer BC | LOC: LABNPT 06:24 | PROVIDERS: ATTEND Emergency Medicine | DX: Z20.828 Contact with and (suspected) exposure to other viral communicable diseases (principal) | CPT/HCPCS: 87635 ==

== ENCOUNTER → 2020-09-03 | Outpatient (CLI) | payer BC ==
--- NOTE | 2020-09-03 14:39 | Diagnostic Imaging Report ---
INDICATION: Routine screening. COMPARISON: 07/25/2019 and 08/19/2018. TECHNIQUE: 2D and 3D bilateral screening mammography was performed with CAD. FINDINGS: Both breasts are heterogeneously dense, limiting the sensitivity of mammography. The parenchymal pattern is stable. There are benign calcifications in both breasts. No mass or malignant appearing microcalcifications are seen. The axillae are unremarkable. IMPRESSION: No mammographic features suspicious for malignancy are identified. ACR BI-RADS Category 2: Benign findings. Result letter will be mailed to the patient. Note: At least 10% of breast cancer is not imaged by mammography. Dictated by: Dictated on workstation # [id number]
== END ==
LOC: RAD 13:30
PROVIDERS: ATTEND Internal Medicine
DX: Z12.31 Encounter for screening mammogram for malignant neoplasm of breast (principal)
CPT/HCPCS: 77063; 77067

== ENCOUNTER → 2020-09-12 | Outpatient (CLI) | payer BC ==
[2020-09-12 06:46] LABS: BASOPHILS % (AUTO) 1 % (0-10); EOSINOPHILS # (AUTO) 0.2 10^3/uL (0.0-0.3); EOSINOPHILS % (AUTO) 3 % (0-10); HEMATOCRIT 43 % (35-52); HEMOGLOBIN 13.7 g/dL (11.5-16.0); LYMPHOCYTES # (AUTO) 2.3 10^3/uL (1.0-4.0); LYMPHOCYTES % (AUTO) 36 % (12-44); MEAN CORPUSCULAR HEMOGLOBIN 30 pg (25-34); MEAN CORPUSCULAR HGB CONC 32 g/dL (32-36); MEAN CORPUSCULAR VOLUME 93 fL (80-99); MEAN PLATELET VOLUME 10.4 fL (9.0-12.2); MONOCYTES # (AUTO) 0.7 10^3/uL (0.0-1.0); MONOCYTES % (AUTO) 12 % (0-12); NEUTROPHILS # (AUTO) 3.2 10^3/uL (1.8-7.8); NEUTROPHILS % (AUTO) 50 % (42-75); PLATELET COUNT 274 10^3/uL (130-400); WHITE BLOOD COUNT 6.4 10^3/uL (4.3-11.0)
[2020-09-12 07:11] LABS: ALBUMIN 4.4 GM/DL (3.2-4.5); BILIRUBIN,TOTAL 0.7 MG/DL (0.1-1.0); CALCIUM 9.2 MG/DL (8.5-10.1); CREATININE SERUM 1.02 MG/DL (0.60-1.30); POTASSIUM 4.1 MMOL/L (3.6-5.0); TOTAL PROTEIN 7.2 GM/DL (6.4-8.2)
== END ==
LOC: LAB 05:03
PROVIDERS: ATTEND Internal Medicine
DX: Z00.00 Encounter for general adult medical examination without abnormal findings (principal); E78.2 Mixed hyperlipidemia; E53.8 Deficiency of other specified B group vitamins; R73.9 Hyperglycemia, unspecified
CPT/HCPCS: 36415; 80053; 80061; 82607; 83036; 84443; 85025

== ENCOUNTER 2021-03-07 05:32 | Outpatient (RCR) | payer BC ==
[~2021-03-07] VITALS: Ht 165.1 cm; Wt 108.4 kg
== END 2021-03-07 09:37 | disposition home or self-care (01) ==
LOC: PREOP 05:32
PROVIDERS: ATTEND Surgery
DX: Z01.812 Encounter for preprocedural laboratory examination (principal); K21.9 Gastro-esophageal reflux disease without esophagitis; Z20.822 Contact with and (suspected) exposure to COVID-19
CPT/HCPCS: 87635

== ENCOUNTER 2021-03-11 12:39 | Day surgery (SDC) | payer BC ==
[~2021-03-11] VITALS: Ht 165.1 cm; Wt 108.4 kg
[2021-03-11] MEDS ORDERED: LACTATED RINGERS 1,000 ML IV ONE (12:41)
[2021-03-11] MEDS ORDERED: LACTATED RINGERS 1,000 ML IV STA (12:44)
[2021-03-11] MEDS ORDERED: HURRICAINE EXT TUBE (BENZOCAINE) XX PRN (12:45)
[2021-03-11 12:57] VITALS: BP 116/69
--- NOTE | 2021-03-11 13:19 | Progress Note-Pre Operative ---
Pre-Operative Progress Note H&P Reviewed The H&P was reviewed, patient examined and no changes noted. Date Seen by Provider: Mar 11, 2021 Time Seen by Provider: 13: Date H&P Reviewed: Mar 11, 2021 Time H&P Reviewed: : Pre-Operative Diagnosis: gerd, epigastric abd pain CELESTINO FRIED DO Mar 11, 2021 13:19
[2021-03-11] MEDS ORDERED: proPOfol 200 MG/20 ML (DIPRIVAN) VIAL IV ONE (13:36)
[2021-03-11] MEDS ORDERED: MIDAZOLAM 2 MG/2 ML (VERSED) VIAL ONE (13:36)
--- NOTE | 2021-03-11 14:04 | Progress Note-Post Operative ---
Post-Operative Progess Note Surgeon (s)/Exterminator Helper (s) Surgeon CELESTINO FRIED DO Exterminator Helper: na Pre-Operative Diagnosis gerd, epigastric abd pain Post-Operative Diagnosis small esophageal varices Procedure & Operative Findings Date of Procedure 03/11/21 Procedure Performed/Findings egd c biopsies Anesthesia Type per supervisor files Estimated Blood Loss Estimated blood loss (mL): none Specimens/Packing Specimens Removed antrum,ge CELESTINO FRIED DO Mar 11, 2021 14:04
[2021-03-11 14:05] VITALS: BP 95/46
[2021-03-11] MEDS ORDERED: PANT40TA2 PO (14:06)
--- NOTE | 2021-03-11 14:06 | Discharge Inst-Simple/Standard ---
Discharge Inst-Standard Discharge Medications New, Converted or Re-Newed RX: Transmitted to Pharmacy Patient Instructions/Follow Up Plan of Care/Instructions/FU: 2 weeks Matteo Activity as Tolerated: Yes Discharge Diet: Regular Diet CELESTINO FRIED DO Mar 11, 2021 14:06
[2021-03-11 14:10] VITALS: BP 93/47
--- NOTE | 2021-03-11 14:14 | Anesthesia-General Post-Op ---
MAC Patient Condition Mental Status/LOC: Same as Preop Cardiovascular: Satisfactory Nausea/Vomiting: Absent Respiratory: Satisfactory Pain: Controlled Complications: Absent Post Op Complications Complications None Follow Up Care/Instructions Patient Instructions None needed. Anesthesiology Discharge Order Discharge Order Patient is doing well, no complaints, stable vital signs, no apparent adverse anesthesia problems. No complications reported per nursing. ADAN WOOD CRNA Mar 11, 2021 14:14
[2021-03-11 14:15] VITALS: BP 97/50
[2021-03-11 14:45] VITALS: BP 108/55
[2021-03-11 14:51] VITALS: BP 108/55
--- NOTE | 2021-03-12 00:25 | OPERATIVE REPORT ---
DATE OF SERVICE: 03/11/2021 PREOPERATIVE DIAGNOSES: Epigastric abdominal pain, gastroesophageal reflux disease. POSTOPERATIVE DIAGNOSIS: Esophageal varices, minimal. SURGEON: Celestino Felipe DO ANESTHESIA: Per OPERATOR CONTROL ROOM. ESTIMATED BLOOD LOSS: None. PROCEDURE: EGD with biopsies. INDICATIONS: The patient is a 60-year-old female with epigastric abdominal pain and GERD symptoms. She understands risks and benefits of procedure and wished to proceed with procedure. Consent was signed in the chart. DESCRIPTION OF PROCEDURE: The patient was taken to the endoscopy suite, placed in left lateral recumbent position. Timeout was performed. Scope was inserted in mouth, down the esophagus, stomach and into the duodenum without difficulty. There were no polyps, masses or ulcerations within the duodenum. Scope was slowly retracted back into the stomach where it was further insufflated. No polyps, masses or ulcerations. Scope was retroflexed noting no other pathology. Biopsy of the antrum was obtained. Scope was slowly retracted back to the distal esophagus. Biopsy of the GE junction was obtained. There were no polyps, masses or ulcerations. Scope was continuously retracted back. Some slight esophageal varices present. No other pathology noted. Scope was slowly retracted back until completely removed. The patient tolerated procedure well without any complications, taken to recovery room in stable condition. RECOMMENDATIONS: The patient will be started on Protonix 40 mg daily. We will reevaluate her symptoms and discuss further management of her varices. Job ID: [id number] DocumentID: [id number] Dictated Date: 03/11/2021 14:09:54 [place] Operator Date: 03/12/2021 00:25:24 Dictated By: CELESTINO FELIPE DO
== END 2021-03-11 15:10 | disposition home or self-care (01) ==
LOC: ENDO 12:39
PROVIDERS: ATTEND Surgery
DX: K21.00 Gastro-esophageal reflux disease with esophagitis, without bleeding (principal); I85.00 Esophageal varices without bleeding; R10.13 Epigastric pain; E66.9 Obesity, unspecified; Z88.8 Allergy status to other drugs, medicaments and biological substances; Z79.899 Other long term (current) drug therapy; Z90.710 Acquired absence of both cervix and uterus; Z79.891 Long term (current) use of opiate analgesic; Z68.39 Body mass index [BMI] 39.0-39.9, adult; Z87.891 Personal history of nicotine dependence; Z90.49 Acquired absence of other specified parts of digestive tract; Z82.49 Family history of ischemic heart disease and other diseases of the circulatory system

== ENCOUNTER → 2021-04-02 | Outpatient (CLI) | payer BC ==
[~2021-04-02] MED LIST changes: +PANT40TA2 PO
--- NOTE | 2021-04-02 09:48 | Diagnostic Imaging Report ---
PROCEDURE: US Hepatic (Liver). TECHNIQUE: Multiple Real-time grayscale images were obtained over the right upper quadrant in various projections. INDICATION: Esophageal varices without bleeding. FINDINGS: The gallbladder ultrasound exam performed on 11/01/2015 failed to show any focal abnormality involving the liver. There was no evidence for biliary dilatation either. There did appear to be a small 9 mm cyst in the medial aspect of the right lobe. On this exam, the liver does not appear to be enlarged. There is still no focal mass involving the liver and the biliary tree is not abnormally distended. The cyst in the medial aspect of the right lobe seen previously is stable in size and appearance. Most likely, this is a benign process. By history, the gallbladder is surgically absent. The common bile duct is not dilated measuring 5 mm. The right kidney, proximal aorta, and inferior vena cava are within normal limits. The pancreas is partially obscured by bowel gas and difficult to evaluate. IMPRESSION: 1. The liver is not enlarged and there is no focal solid mass involving the liver. 2. The small cyst involving the right lobe of the liver seen previously is again evident and no different. 3. The gallbladder is surgically absent. Dictated by: Dictated on workstation # [id number]
== END ==
LOC: RAD 08:17
PROVIDERS: ATTEND Surgery
DX: I85.00 Esophageal varices without bleeding (principal); J98.4 Other disorders of lung; Z90.49 Acquired absence of other specified parts of digestive tract
CPT/HCPCS: 76705

== ENCOUNTER → 2021-04-23 | Outpatient (CLI) | payer BC ==
[2021-04-23 15:49] LABS: BILIRUBIN,URINE NEGATIVE (NEGATIVE); CLARITY,URINE CLEAR; COLOR,URINE YELLOW; GLUCOSE, URINE (UA) 1+ (NEGATIVE); KETONES,URINE TRACE (NEGATIVE); LEUKOCYTE ESTERASE ,URINE 2+ (NEGATIVE); NITRITE,URINE POSITIVE (NEGATIVE); PROTEIN,URINE 2+ (NEGATIVE)
[2021-04-23 16:14] LABS: AMORPHOUS SEDIMENT,UR RARE AMOR URATES /LPF; BACTERIA,URINE FEW /HPF; RBC,URINE 0-2 /HPF; WBC,URINE >100 /HPF
== END ==
LOC: LAB 14:54
PROVIDERS: ATTEND Surgery
DX: R30.0 Dysuria (principal)
CPT/HCPCS: 81000; 87088

== ENCOUNTER → 2021-09-08 | Outpatient (CLI) | payer BC ==
--- NOTE | 2021-09-08 19:41 | Diagnostic Imaging Report ---
INDICATION: Routine screening. COMPARISON is made with prior mammograms from 09/03/2020 and 07/25/2019. 2-D and 3-D bilateral screening mammography was performed with CAD. Both breasts are heterogeneously dense, limiting the sensitivity of mammography. There are benign calcifications bilaterally. No mass or malignant-appearing microcalcifications are seen. Axillae are unremarkable. IMPRESSION: BI-RADS Category 2 No mammographic features suspicious for malignancy are identified. ACR BI-RADS Category 2: Benign findings. Result letter will be mailed to the patient. Note: At least 10% of breast cancer is not imaged by mammography. Dictated by: Dictated on workstation # [id number]
== END ==
LOC: RAD 14:30
PROVIDERS: ATTEND Internal Medicine
DX: Z12.31 Encounter for screening mammogram for malignant neoplasm of breast (principal)
CPT/HCPCS: 77063; 77067

== ENCOUNTER → 2021-09-16 | Outpatient (CLI) | payer BC ==
[2021-09-16 05:24] LABS: BASOPHILS # (AUTO) 0.1 10^3/uL (0.0-0.1); BASOPHILS % (AUTO) 1 % (0-10); EOSINOPHILS # (AUTO) 0.2 10^3/uL (0.0-0.3); EOSINOPHILS % (AUTO) 3 % (0-10); HEMATOCRIT 41 % (35-52); HEMOGLOBIN 13.7 g/dL (11.5-16.0); LYMPHOCYTES # (AUTO) 2.6 10^3/uL (1.0-4.0); LYMPHOCYTES % (AUTO) 39 % (12-44); MEAN CORPUSCULAR HEMOGLOBIN 31 pg (25-34); MEAN CORPUSCULAR HGB CONC 33 g/dL (32-36); MEAN CORPUSCULAR VOLUME 94 fL (80-99); MEAN PLATELET VOLUME 10.7 fL (9.0-12.2); MONOCYTES # (AUTO) 0.7 10^3/uL (0.0-1.0); MONOCYTES % (AUTO) 10 % (0-12); NEUTROPHILS # (AUTO) 3.2 10^3/uL (1.8-7.8); NEUTROPHILS % (AUTO) 47 % (42-75); PLATELET COUNT 258 10^3/uL (130-400); WHITE BLOOD COUNT 6.8 10^3/uL (4.3-11.0)
[2021-09-16 05:36] LABS: ALBUMIN 4.1 GM/DL (3.2-4.5); POTASSIUM 4.1 MMOL/L (3.6-5.0)
[2021-09-16 05:37] LABS: CALCIUM 9.5 MG/DL (8.5-10.1)
[2021-09-16 05:38] LABS: TOTAL PROTEIN 6.7 GM/DL (6.4-8.2)
[2021-09-16 05:40] LABS: BILIRUBIN,TOTAL 0.8 MG/DL (0.1-1.0)
[2021-09-16 05:42] LABS: CREATININE SERUM 1.03 MG/DL (0.60-1.30)
== END ==
LOC: LAB 05:05
PROVIDERS: ATTEND Internal Medicine
DX: Z00.00 Encounter for general adult medical examination without abnormal findings (principal); E78.1 Pure hyperglyceridemia; E53.8 Deficiency of other specified B group vitamins; R73.9 Hyperglycemia, unspecified
CPT/HCPCS: 36415; 80053; 80061; 82607; 83036; 84443; 85025

== ENCOUNTER → 2021-10-01 | Outpatient (CLI) | payer BC | LOC: CARD 15:00 | PROVIDERS: ATTEND Internal Medicine | DX: R01.1 Cardiac murmur, unspecified (principal) | CPT/HCPCS: 93306 ==

== ENCOUNTER 2022-01-02 14:03 | Outpatient (CLI) | payer BC | END 2022-01-02 14:25 | LOC: SLEEP 14:03 | PROVIDERS: ATTEND Otolaryngology Otolaryngology/Facial Plastic Surgery | DX: G47.33 Obstructive sleep apnea (adult) (pediatric) (principal); G47.10 Hypersomnia, unspecified | CPT/HCPCS: G0399 ==

== ENCOUNTER → 2022-03-18 | Outpatient (CLI) | payer BC ==
--- NOTE | 2022-03-18 15:36 | Diagnostic Imaging Report ---
INDICATION: Left hip pain. TIME OF EXAM: 2:56 PM FINDINGS: Two views of the left hip demonstrate normal femoral acetabular alignment. Joint spaces are well maintained. Femoral head and neck are intact. No fractures are seen. IMPRESSION: No acute bony abnormality is detected. Dictated by: Dictated on workstation # [id number]
--- NOTE | 2022-03-18 15:43 | Diagnostic Imaging Report ---
INDICATION: Back pain. TIME OF EXAM: 2:56 p.m. FINDINGS: Curvature and alignment of the lumbar spine is normal. Vertebral body heights are well maintained. No acute compression fracture is seen. There is some generalized lumbar spondylosis with variable disc space narrowing and marginal spurring. IMPRESSION: Lumbar spondylosis. No acute bony abnormality is detected. Dictated by: Dictated on workstation # [id number]
--- NOTE | 2022-03-18 15:45 | Diagnostic Imaging Report ---
INDICATION: Sacrum pain. TIME OF EXAM: 2:58 p.m. FINDINGS: Sacrococcygeal alignment appears normal. No fractures are seen. Sacral arcuate lines are intact. IMPRESSION: No acute bony abnormality is detected. Dictated by: Dictated on workstation # [id number]
== END ==
LOC: RAD 14:44
PROVIDERS: ATTEND Internal Medicine
DX: M47.816 Spondylosis without myelopathy or radiculopathy, lumbar region (principal)
CPT/HCPCS: 72100; 72220; 73502

== ENCOUNTER 2022-03-25 14:53 | Outpatient (RCR) | payer BC ==
[~2022-03-25 14:53] MED LIST changes: +OMEP20TA56 PO; -OMEP20TA7 PO
== END 2022-03-28 | disposition home or self-care (01) ==
PROVIDERS: ATTEND Internal Medicine
DX: M54.50 Low back pain, unspecified (principal)

== ENCOUNTER 2022-04-24 14:55 | Outpatient (RCR) | payer BC | END 2022-04-28 | disposition home or self-care (01) | PROVIDERS: ATTEND Internal Medicine | DX: M54.50 Low back pain, unspecified (principal) ==

== ENCOUNTER 2022-05-25 14:54 | Outpatient (RCR) | payer BC | END 2022-05-28 | disposition home or self-care (01) | PROVIDERS: ATTEND Internal Medicine | DX: M54.50 Low back pain, unspecified (principal) ==

== ENCOUNTER 2022-06-26 14:46 | Outpatient (RCR) | payer BC | END 2022-06-28 | disposition home or self-care (01) | PROVIDERS: ATTEND Internal Medicine | DX: M54.50 Low back pain, unspecified (principal) ==

== ENCOUNTER → 2022-07-29 | Outpatient (RCR) | payer BC | END | disposition home or self-care (01) | PROVIDERS: ATTEND Internal Medicine | DX: M54.50 Low back pain, unspecified (principal); Z90.710 Acquired absence of both cervix and uterus ==

== ENCOUNTER → 2022-08-18 | Outpatient (CLI) | payer BC ==
--- NOTE | 2022-08-19 11:19 | Diagnostic Imaging Report ---
Indication: Routine screening. Comparison is made with prior mammogram from 09/08/2021 and 09/03/2020. 2-D and 3-D bilateral screening mammography was performed with CAD. CAD is utilized. The current study was also evaluated with a Computer Aided Detection (CAD) system. Both breasts are heterogeneously dense, limiting the sensitivity of mammography. The parenchymal pattern is stable. No mass or malignant-appearing microcalcifications are seen. There are benign calcifications noted. Axillae are unremarkable. IMPRESSION: BI-RADS Category 2 No mammographic features suspicious for malignancy are identified. ACR BI-RADS Category 2: Benign findings. Result letter will be mailed to the patient. Note: At least 10% of breast cancer is not imaged by mammography. Dictated by: Dictated on workstation # [id number]
== END ==
LOC: RAD 14:34
PROVIDERS: ATTEND Internal Medicine
DX: Z12.31 Encounter for screening mammogram for malignant neoplasm of breast (principal)
CPT/HCPCS: 77063; 77067

== ENCOUNTER → 2022-08-19 | Outpatient (CLI) | payer BC ==
[2022-08-19 07:39] LABS: ALBUMIN 4.5 GM/DL (3.2-4.5); BILIRUBIN,TOTAL 0.7 MG/DL (0.1-1.0); CALCIUM 9.4 MG/DL (8.5-10.1); CREATININE SERUM 0.93 MG/DL (0.60-1.30); POTASSIUM 4.2 MMOL/L (3.6-5.0); TOTAL PROTEIN 7.3 GM/DL (6.4-8.2)
== END ==
LOC: LAB 05:19
PROVIDERS: ATTEND Internal Medicine
DX: Z00.00 Encounter for general adult medical examination without abnormal findings (principal); E78.1 Pure hyperglyceridemia; E78.00 Pure hypercholesterolemia, unspecified; E53.8 Deficiency of other specified B group vitamins; R73.9 Hyperglycemia, unspecified
CPT/HCPCS: 36415; 80053; 82465; 82607; 82746; 83036; 84478

== ENCOUNTER → 2022-09-30 | Outpatient (CLI) | payer BC ==
[2022-09-30 11:06] LABS: BILIRUBIN,URINE NEGATIVE (NEGATIVE); CLARITY,URINE CLEAR; COLOR,URINE YELLOW; GLUCOSE, URINE (UA) NEGATIVE (NEGATIVE); KETONES,URINE NEGATIVE (NEGATIVE); LEUKOCYTE ESTERASE ,URINE NEGATIVE (NEGATIVE); NITRITE,URINE NEGATIVE (NEGATIVE); PROTEIN,URINE NEGATIVE (NEGATIVE)
[2022-09-30 11:13] LABS: BASOPHILS # (AUTO) 0.1 10^3/uL (0.0-0.1); BASOPHILS % (AUTO) 1 % (0-10); EOSINOPHILS # (AUTO) 0.1 10^3/uL (0.0-0.3); EOSINOPHILS % (AUTO) 2 % (0-10); HEMATOCRIT 41 % (35-52); HEMOGLOBIN 13.1 g/dL (11.5-16.0); LYMPHOCYTES # (AUTO) 2.1 10^3/uL (1.0-4.0); LYMPHOCYTES % (AUTO) 30 % (12-44); MEAN CORPUSCULAR HEMOGLOBIN 29 pg (25-34); MEAN CORPUSCULAR HGB CONC 32 g/dL (32-36); MEAN CORPUSCULAR VOLUME 91 fL (80-99); MEAN PLATELET VOLUME 10.5 fL (9.0-12.2); MONOCYTES # (AUTO) 0.6 10^3/uL (0.0-1.0); MONOCYTES % (AUTO) 9 % (0-12); NEUTROPHILS # (AUTO) 4.2 10^3/uL (1.8-7.8); NEUTROPHILS % (AUTO) 59 % (42-75); PLATELET COUNT 326 10^3/uL (130-400); WHITE BLOOD COUNT 7.1 10^3/uL (4.3-11.0)
[2022-09-30 11:16] LABS: BACTERIA,URINE NEGATIVE /HPF; SQUAMOUS EPITHELIAL CELL,UR RARE /HPF
[2022-09-30 11:27] LABS: ALBUMIN 4.5 GM/DL (3.2-4.5); BILIRUBIN,TOTAL 0.6 MG/DL (0.1-1.0); CALCIUM 9.7 MG/DL (8.5-10.1); CREATININE SERUM 0.92 MG/DL (0.60-1.30); POTASSIUM 4.2 MMOL/L (3.6-5.0); TOTAL PROTEIN 7.5 GM/DL (6.4-8.2)
== END ==
LOC: LAB 09:51
PROVIDERS: ATTEND Nurse Practitioner
DX: R10.9 Unspecified abdominal pain (principal)
CPT/HCPCS: 36415; 80053; 81000; 85025

== ENCOUNTER 2022-11-13 11:16 | Day surgery (SDC) | payer BC ==
[~2022-11-13] VITALS: Ht 165.1 cm; Wt 101.0 kg
[~2022-11-13 11:16] MED LIST changes: +DICL75TA2 PO; +MIRA50TA PO
[2022-11-13] MEDS ORDERED: LACTATED RINGERS 1,000 ML IV STA (11:23)
[2022-11-13] MEDS ORDERED: HURRICAINE EXT TUBE (BENZOCAINE) ONE (11:28)
[2022-11-13 11:30] VITALS: BP 140/72
[2022-11-13] MEDS ORDERED: HURRICAINE EXT TUBE (BENZOCAINE) XX PRN (12:15)
[2022-11-13] MEDS ORDERED: PROPOFOL INJECTION 50 ML IV ONE (12:31)
--- NOTE | 2022-11-13 13:06 | Discharge Inst-Simple/Standard ---
Discharge Inst-Standard Patient Instructions/Follow Up Plan of Care/Instructions/FU: Follow-up with Dr Felipe in outpatient clinic in 2 weeks Activity as Tolerated: Yes Discharge Diet: No Restrictions, Regular Diet (High fiber diet) CELESTINO FELIPE DO Nov 13, 2022 13:06
[2022-11-13 13:10] VITALS: BP 114/57
[2022-11-13 13:15] VITALS: BP 134/62
[2022-11-13 13:20] VITALS: BP 134/62
[2022-11-13 13:55] VITALS: BP 134/62
--- NOTE | 2022-11-13 14:12 | Anesthesia-General Post-Op ---
MAC Patient Condition Mental Status/LOC: Same as Preop Cardiovascular: Satisfactory Nausea/Vomiting: Absent Respiratory: Satisfactory Pain: Controlled Complications: Absent Post Op Complications Complications None Follow Up Care/Instructions Patient Instructions None needed. Anesthesiology Discharge Order Discharge Order Patient is doing well, no complaints, stable vital signs, no apparent adverse anesthesia problems. No complications reported per nursing. ADAN WOOD CRNA Nov 13, 2022 14:12
--- NOTE | 2022-11-14 00:43 | OPERATIVE REPORT ---
DATE OF SERVICE: 11/13/2022 PREOPERATIVE DIAGNOSES: Nausea and abdominal pain. POSTOPERATIVE DIAGNOSES: Diverticulosis, rectal polyp and normal EGD. PROCEDURE: EGD with biopsies, colonoscopy with hot biopsy polypectomy x1. SURGEON: Celestino Felipe DO ANESTHESIA: Per QUALITY TECH. ESTIMATED BLOOD LOSS: None. COMPLICATIONS: None. INDICATIONS: The patient is a 62-year-old female who has been having abdominal pain and nausea symptoms. She understands risks and benefits of the procedures and wishes to proceed. Consent was signed in the chart. DESCRIPTION OF PROCEDURE: The patient was taken to endoscopy suite, placed in the left lateral recumbent position and timeout was performed. Scope was inserted in the mouth, down the esophagus, stomach and into the duodenum without difficulty. No polyps, masses or ulcerations within the duodenum. Scope was slowly retracted back into the stomach, which readily insufflated. No polyps, masses or ulcerations. Biopsy of the antrum was obtained. Scope was retroflexed noting no other pathology. Scope was returned to its normal position and slowly withdrawn in the distal esophagus. Biopsy of the GE junction was obtained. No polyps, masses or ulcerations. Scope was retracted back until completely removed. Digital rectal exam was performed. No palpable polyps, masses or ulcerations. Scope was inserted in the rectum and all the way to the cecum with minimal difficulty. Prep was adequate. The scope was slowly retracted back. No polyps, masses, ulcerations within the cecum, ascending, transverse, descending and sigmoid colon. Moderate amount of diverticulosis along the left colon. In the rectum, a small polyp was present, which biopsy polypectomy was performed. Scope was retroflexed noting no other pathology. The patient tolerated the procedure well without any complications. She was taken to recovery room in stable condition. RECOMMENDATIONS: The patient will follow up in 2 weeks. We would recommend high fiber diet due to diverticulosis. Repeat colonoscopy in 5 years. Any issues before that be seen at that time. Further recommendations pending biopsy results. Job ID: [id number] DocumentID: [id number] Dictated Date: 11/13/2022 13:06:19 Machine Worker Date: 11/14/2022 00:41:00 Dictated By: CELESTINO FELIPE DO
== END 2022-11-13 14:03 | disposition home or self-care (01) ==
LOC: ENDO 11:16
PROVIDERS: ATTEND Surgery
DX: D12.8 Benign neoplasm of rectum (principal); K57.30 Diverticulosis of large intestine without perforation or abscess without bleeding; R11.0 Nausea; G47.33 Obstructive sleep apnea (adult) (pediatric); E66.01 Morbid (severe) obesity due to excess calories; Z68.37 Body mass index [BMI] 37.0-37.9, adult; Z87.891 Personal history of nicotine dependence